=== PATIENT | male | born 1990 | race African-American/Black ===

== ENCOUNTER 2017-03-03 23:35 | Inpatient (IN) | payer OTHER, MEDICARE ==
[~2017-03-03] VITALS: Ht 180.3 cm; Wt 65.9 kg
[~2017-03-03 23:35] MED LIST: CLINDAMYCIN PO; LITHIUM CARBON450 MG PO; LITHIUM CARBON600 MG PO; MOTRIN800 MG PO; NYSTATIN100000 U/M PO; OLANZAPINE5 M2 PO; OLANZAPINE5 MG PO; ROBITUSSIN W/CO10 ML PO; ZITHROMAX Z PA250 MG PO; ZITHROMAX Z-PA250 M1 PO; ZYPREXA5 MG PO; [UNRECOGNIZED DRUG - OTHER] PO
--- NOTE | 2017-03-03 23:39 | NUR ---
PT [facility] STATING FRIEND PUT "RAT POISON ON MY MAC AND CHEESE AND MEDICATIONS." PT STATES HX OF BIPOLAR. PT DEMANDING "I NEED THE RAT POISON ANTIDOTE RIGHT NOW."
--- NOTE | 2017-03-03 23:44 | NUR ---
AT BEDSIDE TO EVAL PT
--- NOTE | 2017-03-04 | NUR ---
PT WANDED BY SECURITY. CHANGED INTO PAPER SCRUBS. 1 VALUABLE BAG, 1 BELONGING, 1 BAG TO PHARMACY.
--- NOTE | 2017-03-04 00:03 | ED PSYCHIATRIC COMPLAINT ---
See Addendum History of Present Illness General Chief Complaint: Psychiatric Related Complaint Stated Complaint: BIBIA "FEEL I WAS POINIONED W/ RAT POISION" HX PSY Source: patient, old records, EMS Exam Limitations: clinical condition Vital Signs & Intake/Output Vital Signs & Intake/Output Vital Signs Date Time Temp Pulse Resp B/P B/P Pulse O2 O2 Flow FiO2 Mean Ox Delivery Rate 03/05 0636 95.7 73 16 107/68 100 Room Air 03/04 2205 97.4 72 18 131/93 100 03/04 1231 97.2 82 18 150/92 96 03/04 0843 96.9 55 18 127/73 100 Room Air Allergies Coded Allergies: NO KNOWN ALLERGIES (04/20/16) Reconcile Medications [place] Carbonate ([place] Carbonate ER) 450 MG TABLET.ER 1 TAB PO QAM BIPOLAR (Reported) [place] Carbonate 600 MG CAPSULE 1 CAP PO QPM BIPOLAR (Reported) Olanzapine (Zyprexa) 5 MG TAB 1 TAB PO QPM BIPOLAR Olanzapine 5 MG TABLET 1 TAB PO QPM bipolar Triage Note: PT [facility] STATING FRIEND PUT "RAT POISON ON MY MAC AND CHEESE AND MEDICATIONS." PT STATES HX OF BIPOLAR. PT DEMANDING "I NEED THE RAT POISON ANTIDOTE RIGHT NOW." Triage Nurses Notes Reviewed? yes Unable To Obtain Hx Due To: patient confusion Onset: Just prior to arrival Duration: constant, continues in ED Timing: recent history Severity: severe Associated Symptoms: anxiety, impaired concentration, insomnia HPI: Prior to admission patient called the ambulance for fear of being poisoned by someone placing substances (rat poison) on his food and medication while he was at a friend's house. He denies fever chills nausea vomiting diarrhea abdominal pain chest pain shortness breath headache dysuria rash bleeding suicidal ideation homicidal ideation. (ELIO RUTLEDGE MD) Past History Travel History Traveled to [place] past 21 day No Medical History Any Pertinent Medical History? see below for history Neurological: NONE EENT: NONE Cardiovascular: NONE Respiratory: NONE Gastrointestinal: NONE Hepatic: NONE Renal: NONE Musculoskeletal: NONE Psychiatric: bipolar disease, ADHD Endocrine: NONE Blood Disorders: NONE Cancer(s): NONE CLOTH CLASSER/Reproductive: NONE Surgical History Surgical History: N Psychosocial History What is your primary language Rwandan Tobacco Use: Current Daily Use Daily Tobacco Use Amount/Type: => 5 Cigarettes daily ETOH Use: denies use Family History Hx Contributory? No (ELIO RUTLEDGE MD) Review of Systems Review of Systems Constitutional: Reports: no symptoms. EENTM: Reports: no symptoms. Respiratory: Reports: no symptoms. Cardiovascular: Reports: no symptoms. GI: Reports: no symptoms. Genitourinary: Reports: no symptoms. Musculoskeletal: Reports: no symptoms. Skin: Reports: no symptoms. Neurological/Psychological: Reports: see HPI, anxiety, confusion. Hematologic/Endocrine: Reports: no symptoms. Immunologic/Allergic: Reports: no symptoms. All Other Systems: Reviewed and Negative (ELIO RUTLEDGE MD) Physical Exam Physical Exam General Appearance: well developed/nourished, alert, awake, anxious, severe distress Head: atraumatic, normal appearance Eyes: Bilateral: normal appearance, PERRL, EOMI. 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 patient not suicidal (ELIO RUTLEDGE MD) Progress Differential Diagnosis: drug intoxication, drug overdose, drug withdrawal, electrolyte abnormality, hypoglycemia Plan of Care: Current Medications Sig/Horacio Start time Last Medication Dose Stop Time Status Admin Olanzapine 10 MG QPM 03/04 2200 UNVr 03/04 (Zyprexa) 220 Olanzapine 5 MG Q6P PRN 03/04 1500 AC (ZYDIS (Orally disintegrating tabs)) Hand-Off Endorsed To: LORA JALLOH MD Endorsed Time: 699 Pending: consult (ELIO RUTLEDGE MD) Hand-Off Endorsed To: TREMAYNE PERKINS MD Endorsed Time: 1958 Pending: consult Comments: Patient has been seen and evaluated by human resource adviser. Patient is gravely disabled and unable to care for himself at home. A PEC as been filled out for Mr. Valadez. Patient advised that he is staying. Patient ran out of the emergency room. PD has been notified. (SHUBHAM ROMERO,LORA De Oliveira) Comments: 03/05/2017 7:12:01 AM patient signed out to Dr. Jalloh at shift change agent. (MADDIE ROMERO,TREMAYNE Saxena) Departure Departure Disposition: STILL A PATIENT Condition: Stable Clinical Impression Primary Impression: Bipolar disorder with psychotic features Referrals: TETO CORMIER Departure Forms: Customer Survey General Discharge Information (AAMIR ROMERO,ELIO) Current Medications Sig/Horacio Start time Last Medication Dose Stop Time Status Admin Olanzapine 10 MG QPM 03/04 2200 UNVr (Zyprexa) Olanzapine 5 MG Q6P PRN 03/04 1500 AC (ZYDIS (Orally disintegrating tabs)) Laboratory Tests 03/04/17 0128: Urine Opiates Screen < 100.00, Methadone Screen < 40, Barbiturate Screen < 60, Ur Phencyclidine Scrn < 6.00, Amphetamines Screen < 100, U Benzodiazepines Scrn < 85, Urine Cocaine Screen < 50, Urine Cannabis Screen < 5.00 03/04/17 0027: Anion Gap 12, Estimated GFR > 60, BUN/Creatinine Ratio 15.6, Glucose 110 H, Calcium 9.7, Total Bilirubin 0.8, AST 27, ALT 37, Alkaline Phosphatase 64, Total Protein 7.9, Albumin 4.9, Globulin 3.0, Albumin/Globulin Ratio 1.6, CBC w Diff NO MAN DIFF REQ, RBC 5.03, MCV 90.9, MCH 29.8, RDW 13.6, MPV 9.3, Gran % 64.9, Lymphocytes % 26.0, Monocytes % 8.1, Eosinophils % 0.4, Basophils % 0.6, Absolute Granulocytes 5.1, Absolute Lymphocytes 2.0, Absolute Monocytes 0.6, Absolute Eosinophils 0, Absolute Basophils 0, PUBS MCHC 32.8 L, Salicylates < 1.0, Acetaminophen < 10.0 L, [place] 0.6, Serum Alcohol < 10.0 03/03/172349: Serum Alcohol Cancelled 03/03/172349: PT Cancelled, INR Cancelled, CBC w Diff Cancelled, WBC Cancelled, RBC Cancelled, Hgb Cancelled, Hct Cancelled, MCV Cancelled, MCH Cancelled, RDW Cancelled, Plt Count Cancelled, MPV Cancelled, PUBS MCHC Cancelled, Methadone Screen Cancelled, Barbiturate Screen Cancelled, Ur Phencyclidine Scrn Cancelled, Amphetamines Screen Cancelled, U Benzodiazepines Scrn Cancelled, Urine Cocaine Screen Cancelled, Urine Cannabis Screen Cancelled Hand-Off Endorsed To: LORA JALLOH MD Endorsed Time: 0700 Pending: consult (AAMIR ROMERO,ELIO) Hand-Off Endorsed To: MADDIE ROMERO,TREMAYNE Saxena Endorsed Time: 1958 Pending: consult Comments: Patient has been seen and evaluated by human resource adviser. Patient is gravely disabled and unable to care for himself at home. A PEC as been filled out for Mr. Valadez. Patient advised that he is staying. Patient ran out of the emergency room. PD has been notified. (SHUBHAM ROMERO,LORA De Oliveira) Departure Departure Disposition: STILL A PATIENT Condition: Stable Clinical Impression Primary Impression: Bipolar disorder with psychotic features Referrals: TETO CORMIER Departure Forms: Customer Survey General Discharge Information (AAMIR ROMERO,ELIO)
[2017-03-04 00:33] LABS: ABSOLUTE BASOPHIL COUNT 0 /CUMM (0.0-0.2); ABSOLUTE EOSINOPHIL COUNT 0 /CUMM (0.0-0.7); ABSOLUTE GRANULOCYTE CT 5.1 /CUMM (1.4-6.5); ABSOLUTE MONOCYTE COUNT 0.6 /CUMM (0.10-0.60); BASOPHIL % 0.6 % (0.0-2.0); EOSINOPHIL % 0.4 % (0-5); GRANULOCYTE % 64.9 % (42.2-75.2); HEMATOCRIT 45.7 % (42-52); MEAN CORPUSCULAR HGB 29.8 PG (27.0-31.0); MEAN CORPUSCULAR HGB CONC 32.8 G/DL (33.0-37.0); MEAN CORPUSCULAR VOLUME 90.9 FL (80.0-94.0); MEAN PLATELET VOLUME 9.3 FL (7.4-10.4); PLATELET COUNT 204 /CUMM (130-400); RBC DISTRIBUTION WIDTH 13.6 % (11.5-14.5); RED BLOOD CELL CT 5.03 /CUMM (4.70-6.10); WHITE BLOOD CELL COUNT 7.8 /CUMM (4.8-10.8)
--- NOTE | 2017-03-04 00:35 | NUR ---
LABS SENT (1SST,1LAV)
[2017-03-04 00:45] LABS: LITHIUM 0.6 mmol/L (0.6-1.2)
--- NOTE | 2017-03-04 01:00 | NUR ---
PATIENT CONTINUES TO WHEEL ALIGNER DOORWAY, ASKING MULTIPLE STAFF MEMBERS WHEN HIS BLOODWORK RESULTS WILL BE BACK "BECAUSE I NEED THE ANTI-DOTE FOR RATPOISON."
--- NOTE | 2017-03-04 01:21 | NUR ---
PATIENT INFORMED WAITING FOR DISCUSSION OF BLOODWORK RESULTS.
--- NOTE | 2017-03-04 01:23 | NUR ---
PATIENT INFORMED WAITING AGAIN FOR BLOODWORK RESULTS.
--- NOTE | 2017-03-04 01:35 | NUR ---
PATIENT MEDICATED W/ ZYPREXA AND ATIVAN PER EMAR. TOLERATED WELL. PATIENT REMAINS PARANOID, CONTINUES TO STATE "I DON'T KNOW, I THINK MAYBE MY HEART RATE IS LOW AND I FEEL LIKE I'M BREATHING WEIRD AND I KNOW IT'S FROM THE RAT POISON." VSS. VERBAL SUPPORT PROVIDED. LIMITS SET FOR PATIENT TO REMAIN IN ROOM. AWARE MD RUTLEDGE WILL BE COMING IN TO ROOM TO SPEAK W/ PATIENT REGARDING BLOODWORK RESULTS.
--- NOTE | 2017-03-04 01:50 | NUR ---
PT CONTINUING TO COME OUT OF ROOM REQUESTING "PAPERS" PT UNABLE TO CLARIFY. LIMITS RESET ON STAYING IN ROOM. WATER PROVIDED TO PT.
--- NOTE | 2017-03-04 02:16 | NUR ---
PT SLEEPING AT THIS TIME WITH REGULAR RR NOTED
--- NOTE | 2017-03-04 04:03 | NUR ---
PT OBSERVED SLEEPING, REGULAR RR NOTED. NO ACUTE DISTRESS NOTED.
--- NOTE | 2017-03-04 06:41 | NUR ---
PT AWAKE, CALM AND COOPERATIVE THIS MORNING. STATES AGAIN HIS FRIEND PUT RAT POISON ON HIS FOOD. REASSURED HE IS SAFE AND VITALS ARE STABLE.
--- NOTE | 2017-03-04 07:42 | NUR ---
PT IS SLEEPING, LIGHTS OFF VSS
--- NOTE | 2017-03-04 12:53 | NUR ---
JUICE PROVIDED. PT REMAINS WITHOUT COMPLAINTS
--- NOTE | 2017-03-04 13:57 | ED PSYCH CRISIS CONSULTATION ---
See Addendum Crisis Consult Basic Assessment Date of Consult: 03/04/17 Responsible Person/Accompanied By: self Insurance Authorization: Insurance #1: Insurance name: MEDICARE A Phone number: Policy number: [id number] Group number: Authorization number: ED Provider: Patient's ED Provider: ELIO RUTLEDGE MD Primary Care Physician: Patient's PCP: PATIENT HAS NO PRIMARY CARE DR PCP's Phone Number: Current Psychiatrist: [facility] Chief Complaint: Psychiatric Related Complaint Patient's Quote: "Some one put rat poison in my food." Present Illness: Pt is a 27 yo male who came to the ED because he thought that someone had put rat poison in his food and medication. Pt explains that after he as his mac and cheese he felt strange and his heart began racing so he thought that he had been poisoned. Pt states he is in out pt tx at [facility] and is compliant with his meds. Pt's [place] level is on the low side. Pt appeared anxious and was pacing the room asking to leave. Pt says he feels fine now and he to be somewhere. He was very guarded and refused to says where he has to go and his answers to questions were minimal. pt says he lives alone and that he has not been psychiatrically hospitalized since age 7yo. Pt reports that he has not slept in 4 days and has been having a difficult time since his Mom 2 years ago. Ch[facility] called [facility] and spoke to Melinda who informed that pt has not come to [facility] since Oct and has missed appointments. She informed that she was actually just about to send him a discharge letter. she reports that his Diagnosis is Bipolar I and that he has a hx of psychotic features. She reports that he also has a hx of becoming manic. She reports that pt was psychiatrically hospitalized in 2015 for Bipolar with Psychotic features, but she reports that their record does not identify where. She recommends inpt tx for pt. [facility] also spoke with Pt's Maternal Aunt Judy Diaz and pt's cousin Ameena Diaz . They informed that pt has basically estranged himself from family and they are not in contact with him that much, but inform that when he is not on his meds he becomes irrational. They also think pt needs inpt psych to get stabilized on his meds. They asked that pt not be told that they recommended this, but would like to be informed where pt is admitted. Case reviewed with Dr. Guerrero of Psychiatry and pt will be psychiatrically hospitalized on a PEC. Patient's Address: [address] [place] [id number] Other Phone Number: Who Do You Live With? Patient/Self Family/Informants Interviewed: [facility], Family Allergies - Coded Allergies: NO KNOWN ALLERGIES (04/20/16) Current Medications - Scheduled Medications [place] Carbonate ([place] Carbonate ER) 450 MG TABLET.ER 1 TAB PO QAM BIPOLAR #30 (Reported) Entered as Reported by JOVAN CROWE on 04/21/14310 Last Taken: At an unknown date and time [place] Carbonate 600 MG CAPSULE 1 CAP PO QPM BIPOLAR #30 (Reported) Entered as Reported by JOVAN CROWE on 04/21/14311 Last Taken: At an unknown date and time Olanzapine (Zyprexa) 5 MG TAB 1 TAB PO QPM BIPOLAR #5 TAB Prescribed by TREMAYNE PERKINS MD on 03/17/15 Last Taken: 03/03/171999 Olanzapine 5 MG TABLET 1 TAB PO QPM bipolar #7 TAB Prescribed by NOEL GARCIA on 04/20/16 Last Taken: Unknown Dose at an unknown date and time Laboratory Results: Laboratory Tests 03/04/17 0128: Urine Opiates Screen < 100.00, Methadone Screen < 40, Barbiturate Screen < 60, Ur Phencyclidine Scrn < 6.00, Amphetamines Screen < 100, U Benzodiazepines Scrn < 85, Urine Cocaine Screen < 50, Urine Cannabis Screen < 5.00 03/04/17 0027: Anion Gap 12, Estimated GFR > 60, BUN/Creatinine Ratio 15.6, Glucose 110 H, Calcium 9.7, Total Bilirubin 0.8, AST 27, ALT 37, Alkaline Phosphatase 64, Total Protein 7.9, Albumin 4.9, Globulin 3.0, Albumin/Globulin Ratio 1.6, CBC w Diff NO MAN DIFF REQ, RBC 5.03, MCV 90.9, MCH 29.8, RDW 13.6, MPV 9.3, Gran % 64.9, Lymphocytes % 26.0, Monocytes % 8.1, Eosinophils % 0.4, Basophils % 0.6, Absolute Granulocytes 5.1, Absolute Lymphocytes 2.0, Absolute Monocytes 0.6, Absolute Eosinophils 0, Absolute Basophils 0, PUBS MCHC 32.8 L, Salicylates < 1.0, Acetaminophen < 10.0 L, [place] 0.6, Serum Alcohol < 10.0 03/03/17 2350: Serum Alcohol Cancelled 03/03/17 2350: PT Cancelled, INR Cancelled, CBC w Diff Cancelled, WBC Cancelled, RBC Cancelled, Hgb Cancelled, Hct Cancelled, MCV Cancelled, MCH Cancelled, RDW Cancelled, Plt Count Cancelled, MPV Cancelled, PUBS MCHC Cancelled, Methadone Screen Cancelled, Barbiturate Screen Cancelled, Ur Phencyclidine Scrn Cancelled, Amphetamines Screen Cancelled, U Benzodiazepines Scrn Cancelled, Urine Cocaine Screen Cancelled, Urine Cannabis Screen Cancelled (DOUG HAWTHORNE LCSW) Past History Past Medical History Neurological: NONE EENT: NONE Cardiovascular: NONE Respiratory: NONE Gastrointestinal: NONE Hepatic: NONE Renal: NONE Musculoskeletal: NONE Psychiatric: bipolar disease, ADHD Endocrine: NONE Blood Disorders: NONE Cancer(s): NONE BELLY PACKER/Reproductive: NONE Past Surgical History Surgical History: none Psychosocial History Strengths/Capabilities: Has stable place to live Psychiatric Treatment History Psych Treatment Psychiatric Treatment Yes Inpatient Treatment Yes Outpatient Treatment Yes Location of Treatment [facility], inpt unknown Reason for Treatment Bipolar I Manic with Psychotic features Dates of Treatment 2014 inpt and current out pt tx at [facility] Response to Treatment non-compliant Diagnosis by History: Bipolar I manic with Psychotic features Substance Use/Abuse History Drug Use/Abuse Substances Used/Abused No Substance Abuse Treatment Substance Abuse Treatment Past Substance Abuse [place] No Inpatient Treatment No Outpatient Treatment No (DOUG HAWTHORNE LCSW) Current Mental Status Mental Status Orientation: Person, Place, Situation Affect: Anxious, Angry Speech: Evasive Neuro-vegetative: Concentration Poor, Hyperactivity, Sleep Disturbance Appearance Appearance- Dress/Hygiene: fairly groomed and pacing the room Behaviors Thought Process: Irrational Thought Content: Delusions, Paranoid Memory: WNL Insight: Poor SI/HI Risk Assessment Past Suicidal Ideation/Attempts No Current Suicidal Ideation/Att No Past Homicidal Ideation/Att: No Current Homicidal Ideation/Attempts No Degree of Intent: None Danger To: Self Gravely Disabled: Lack of Insight, Poor Impulse Control, Poor Judgment Risk Factors: SA/MH hospitalized, poor impulse control, lack of outcome concern, lives alone, male, limited support Lethality Ratin PTSD Checklist PTSD Done? pt unable to participate ED Management Sitter: Yes Restraints: No (DOUG HAWTHORNE LCSW) DSM5/PS Stressors/Medical Prob Diagnosis' (DSM 5, Stressors, Medical): Bipolar I Manic with Psychotic Features F31.2 Current GAF: 25 (DOUG HAWTHORNE LCSW) Departure Disposition Psych Medical Clearance Date: 03/04/17 Medically Cleared at: 1300 Time Started: 1300 Time Ended: 1400 Psychiatrist Consulted: Nikia Guerrero MD Date Disposition Established: 03/04/17 Time Disposition Established: 1400 Plan for Disposition - Modality: Inpatient Psychiatry Facility: Bed Search Rationale for Disposition: safety and stabilization Type of IP Admission: PEC Referrals PATIENT HAS NO PRIMARY CARE DR (PCP/Family) (DOUG HAWTHORNE LCSW) Addendum Addendum 22:00 - This communications writer reassessed pt. briefly per 12 hour protocol. Disposition remains inpatient psychiatric admission on a PEC. Pt. presents with mild agitation but was cooperative. Pt. questions the need for staying in the ED. This communications writer reiterated plan for disposition and advised crisis would reassess in the AM. Pt. states he arrived in the ED only for a medical evaluation of suspected rat poisin in his food. Pt. requested a dinner tray - [facility] sent a food order (pt. refused his meal earlier). (PAULETTE CAMPOS LCSW) Addendum Pt re-evaluation. Pt initially presenting as agitated and demanding to be discharged. Pt responsive to redirection and able to review reasons why he meets crieria for inpatient psychiatric admission. Pt more agreeable to plan. requested to shower. Bed search continues. Refrral faxed to [facility] for review. (QUYNH PINEDO LCSW) Addendum Crisis attempted to re-evaluation patient. However, pt is sleeping. Pt did not wake up when sitter and this department clinician attempted to wake pt. (ALEE BENOIT LCSW)
--- NOTE | 2017-03-04 14:10 | NUR ---
PT AMXIOUS AND WALKING AROUND INROOM.. PT WONDERING WHAT PLAN OF CARE IS.. CRISIS STATES THAT WILL SEE HIM SHORTLY. PT AWARE
--- NOTE | 2017-03-04 14:54 | NUR ---
DR JALLOH AT BEDSIDE TO SPEAK WITH PT. PT IS GETTING AGITATED AND PACING.
--- NOTE | 2017-03-04 15:04 | NUR ---
PT ASKED FOR HIS PHONE TO GET PHONE NUMBERS, WALKED OUT OF HIS ROOM AND RUN OUT TO EXIT. SECURITY FOLLOWED THE PT.
--- NOTE | 2017-03-04 15:16 | NUR ---
UNABLE TO STOP THE PT, PT RUN OUT OF ER, POLICE CALLED BY IMAGE EDITOR KATE. PT HAS HIS PHONE.
--- NOTE | 2017-03-04 15:43 | NUR ---
PT BACK IN ROOM WITH POLICE OFICER.
--- NOTE | 2017-03-04 16:48 | NUR ---
PT RESTING ON STRETCHER, CALM AND COOPERATIVE AT THIS TIME, OFFERS NO NEEDS OR COMPLAINTS, SITTER AT DOORWAY.
--- NOTE | 2017-03-04 17:02 | NUR ---
[facility] called and stated that they are declining the patient for admission to their unit, at this time. They note that they do not have staffing to accept the patient, and that they will call back if that changes.
--- NOTE | 2017-03-04 18:02 | NUR ---
PT MOVED INTO ROOM15, SITTER AT DOORWAY.
--- NOTE | 2017-03-04 20:46 | NUR ---
PT REMAINS IN BED W/RR NOTED. SITTER REMAINS IN PLACE.
--- NOTE | 2017-03-04 22:06 | NUR ---
PT MEDICATED WITH 10MG ZYDIS PER EMAR, TOLERATED WELL. SITTER IN PLACE
--- NOTE | 2017-03-05 00:19 | NUR ---
PT REMAINS ASLEEP AT THIS TIME W/RR NOTED. SITTER IN PLACE
--- NOTE | 2017-03-05 02:03 | NUR ---
PT REMAINS ASLEEP AT THIS TIME W/RR NOTED. SITTER REMAINS IN PLACE FOR SAFETY.
--- NOTE | 2017-03-05 04:08 | NUR ---
PT REMAINS ASLEEP AT THIS TIME. BILATERAL AND REGULAR RESPIRATIONS NOTED. SITTER IN PLACE
--- NOTE | 2017-03-05 06:20 | NUR ---
PT REMAINS ASLEEP AT THIS TIME W/RR NOTED, SITTER REMAINS IN PLACE.
--- NOTE | 2017-03-05 07:44 | NUR ---
PT STANDING IN DOORWAY. SITTER IN ATTENDANCE.
--- NOTE | 2017-03-05 09:45 | NUR ---
PSYCHIATRIST AT BEDSIDE.
--- NOTE | 2017-03-05 10:00 | NUR ---
PT MEDICATED WITH PRN ZYDIS. PT ASKING TO TAKE A SHOWER. OK FOR PT TO SHOWER, PROVIDED SHOWER SUPPLIES, TOWELS AND FRESH BLUE SCRUBS.
--- NOTE | 2017-03-05 10:24 | NUR ---
Pt re-evaluated by crisis. Pt initially presenting as agitated and demanding to be discharged. Pt able to respond to redirection and reviewed reasons why he meets criteria for inpatient bed search. Pt now more accepting of plan and initiated taking a shower. Pt referral has been faxed to [facility] for review.
--- NOTE | 2017-03-05 10:43 | ED PSYCHIATRIST/APRN CONSULT ---
Psychiatrist/CONTROL CLERK ED Consult Assessment and Plan: f/u for more than 24 h. in the ed [facility] The patient is a 27 years old, -Nigerian, single male, who self referred to the emergency room with the complaint of being poisoned with rat poison. We reviewed the emergency room reports as well as the initial crisis report. The patient is apparently in treatment at [facility], (he was on the verge of discharge when he presented to the emergency room because of missed appointments ). The patient is a tall, slender, -Nigerian male, irritable, guarded and suspicious. He states "I just want to go home, I live right [place] the [address] from [place]. I have my therapist and my psychiatrist at [facility] and I have been taking my medication regularly. There is nothing wrong with me." As per [facility], he has not been seen by them since October 2016. The lithium level was barely therapeutic, even though the patient stated that he was taking it regularly. He also said that he took one tablet of lithium prior to coming into the emergency room this may be why his level is almost therapeutic. Diagnosis: Bipolar disorder versus schizoaffective disorder (per [facility]) Stressors include poor social support, stopping his medication, missing his treatment appointments. Current GAF is 30%. The patient agreed to stabilization on inpatient unit. We will restart lithium carbonate and he was given Zyprexa with good effect. We will continue observation, symptom monitoring and medication management. Will continue to search for and inpatient bed.
--- NOTE | 2017-03-05 11:20 | NUR ---
ASSUMED CARE OF THIS PT FROM RENATE LOYA. PT ASLEEP AT THIS TIME. RESPIRATIONS EQUAL AND UNLABORED. SITTER AT DOOR.
--- NOTE | 2017-03-05 13:00 | NUR ---
PT ASLEEP AT THIS TIME. PT LYING ON HIS LEFT SIDE FACING DOOR. PT'S RESPIRATIONS EQUAL AND UNLABORED. SITTER AT DOOR.
--- NOTE | 2017-03-05 14:14 | NUR ---
Sw received a call from [facility], who states that they are not taking any outside referrals at this time.
--- NOTE | 2017-03-05 14:18 | NUR ---
PT ASLEEP AT THIS TIME. RESPIRATIONS EQUAL AND UNLABORED. SITTER AT DOOR.
--- NOTE | 2017-03-05 14:52 | NUR ---
SW spoke to [facility] who state that they no longer have any open beds at this time.
--- NOTE | 2017-03-05 15:49 | NUR ---
ASSUMED CARE OF PT. PT CURRENTLY SLEEPING. REGULAR BREATHING NOTED.
--- NOTE | 2017-03-05 17:35 | NUR ---
PATIENT CONTINUES TO FRAME CHANGER DOORWAY ASKING MUTLIPLE QUESTIONS. PATIENT ASKING IF HE CAN SIGN HIMSELF OUT BECAUSE HE ISNT HARMING ANYONE OR HIMSELF
--- NOTE | 2017-03-05 19:07 | NUR ---
PT MEDICATED WITH LITHIUM 600MG PO PER ORDER. PT TAKES LITHIUM BID, 450MG IN THE MORNING AND 600MG AT NIGHT, PT WILL BE BACK ON LITHIUM SCHEDULE TOMORROW. PT DENIES ANY NEEDS AT THIS TIME. RESTING IN BED. SITTER AT DOORWAY.
--- NOTE | 2017-03-05 20:53 | NUR ---
Crisis attempted to meet with patient. Patient sleeping.
--- NOTE | 2017-03-05 22:49 | NUR ---
PT AWAKEN FOR VS, VSS, MEDICATED WITH ZYPREXA PER EMAR. SITTER AT DOORWAY.
--- NOTE | 2017-03-06 00:31 | NUR ---
PT RESTING ON BED. NORMAL RR NOTED. WILL CONTINUE TO MONITOR.
--- NOTE | 2017-03-06 03:24 | NUR ---
PT RESTING ON BED. SITTER IN PLACE. WILL CONTINUE TO MONITOR.
--- NOTE | 2017-03-06 06:38 | NUR ---
PT AWAKENED FOR VITALS. PT OFFERS NO COMPLAINTS. WILL CONTINUE TO MONITOR.
--- NOTE | 2017-03-06 07:38 | NUR ---
CALLED TO ROOM BY SITTER PT IS REQUESTING TO TALK WITH SOMEONE, UPON THIS DIRECTORY OPERATOR ENTRANCE TO ROOM, PT BECAME AGITATED AND REPORTS "DUDE YOU CANNOT HOLD ME HERE" i AM 27 AND MAKE MY OWN DECISIONS, I WILL LOOSE MY SECTION 8 HOUSING" IT WAS EXPLAINED TO PT THAT AT THIS POINT WE ARE SEACHING FOR A BED PT BECAME UPSET, AND THREATENS TO LEAVE. PT IN ROOM SITTER IN PLACE. SECURITY PRESENT, AWARE WILL MONITOR.
--- NOTE | 2017-03-06 09:14 | NUR ---
SPOKE WITH MARIO IN PHARMACY TO PREPARE 1000 MEDS.
--- NOTE | 2017-03-06 09:48 | NUR ---
PT WITH CRISIS, REPORTS WILL BE LEAVING, ALTHOUGH THIS INFORMATION HAS NOT YET BEEN RELAYED TO THIS TELEMEDICINE PHYSICIAN BY CRISIS. MED WITH LITHIUM PER EMAR
--- NOTE | 2017-03-06 11:18 | NUR ---
PER CRISIS PT IS ON A PEC AND WILL NOT BE DISCHARGED TO HOME.
--- NOTE | 2017-03-06 11:34 | NUR ---
SISTER AT BEDSIDE.
--- NOTE | 2017-03-06 14:31 | NUR ---
PT HAS SHOWERED X 2 THIS AM/PM ASLEEP AT THIS TIME, PT WAS MADE AWARE VERY CLEARLY BY CRISIS IN SISTERS PRESENCE THAT HE MAY NOT LEAVE.
--- NOTE | 2017-03-06 16:19 | NUR ---
ASSUMED CARE OF PT PER RN ARGELIA H, PT SLEEPING WITH RR, SITTER IN PLACE FOR SAFETY.
--- NOTE | 2017-03-06 16:19 | NUR ---
PT RESTING IN BED WITH RR, SITTER IN PLACE FOR SAFETY, WILL CONTINUE TO MONITOR.
--- NOTE | 2017-03-06 16:39 | ED PSYCHIATRIST/APRN CONSULT ---
Psychiatrist/FORENSIC ANTHROPOLOGIST ED Consult Assessment and Plan: The patient was seen to us the continuous need for inpatient care. He appears calm, pleasant and cooperative. He has increased insight into his condition and the rationale for his presence in the emergency room. He reveals that, prior to his presentation into the emergency room he was at a constitution party, he took his medications after he left the constitution party but also had "some shots ". The patient says that since he restarted his psychiatric medications he feels better. Continues to be somewhat disorganized and paranoid. He currently denies suicidal/homicidal ideation, auditory/visual hallucinations or side effects from the medications. He will continue taking Zyprexa and lithium, he likes the former because it comes him down and is sedating therefore he will be able to sleep and rest better. According to his sister's report his apartment was dirty, with raw food left in the oven, unwashed dishes in the sink. The sister expressed her worry about the patient being unable to live alone. He eventually agrees that he needs further help on on inpatient unit We will continue present management in the patient will be admitted to [facility] if a pet becomes available we are also continuing a bed search.
--- NOTE | 2017-03-06 18:00 | NUR ---
Crisis spoke to pt sister, James Buckley. She requested a call back after MD met with pt. She is home now. Her home number is [phone].
--- NOTE | 2017-03-06 18:42 | NUR ---
PT SLEEPING WITH RR, WILL CONTINUE TO MONITOR.
--- NOTE | 2017-03-06 19:55 | NUR ---
PT SLEEPING WITH RR, WILL CONTINUE TO MONITOR, SITTER IN PLACE FOR SAFETY.
--- NOTE | 2017-03-06 20:20 | NUR ---
VSS, WILL CONTINUE TO MONITOR, SITTER IN PLACE FOR SAFETY, PT SLEEPING WITH RR.
--- NOTE | 2017-03-06 20:33 | NUR ---
Pt was evaluated by the psychatrist Dr. Guerrero. Pt meets criteria for inpatient admision. Referral faxed to [facility].
--- NOTE | 2017-03-06 22:26 | NUR ---
PT MEDICATED WITH 600MG LITHIUM PO AND 10MG ZYPREXA PO PER EMAR. PT RESTING WITH RR, WILL CONTINUE TO MONITOR, PT HAS SITTER AT BEDSIDE FOR SAFETY.
--- NOTE | 2017-03-06 23:02 | NUR ---
PT SLEEPING WITH RR, BILATERAL CHEST RISE AND FALL NOTED. WILL CONTINUE TO MONITOR, SITTER IN PLACE FOR SAFETY.
--- NOTE | 2017-03-07 03:42 | NUR ---
PT SLEEPING WITH RR, WILL CONTINUE TO MONITOR, BILATERAL CHEST RISE AND FALL NOTED. SITTER IN PLACE FOR SAFETY.
--- NOTE | 2017-03-07 06:26 | NUR ---
PT SLEEPING WITH RR, SITTER IN PLACE FOR SAFETY. VSS, PT INFORMED BREAKFAST WILL ARRIVE SOON. WILL CONTINUE TO MONITOR
--- NOTE | 2017-03-07 07:12 | NUR ---
PT IS UP, BREAKFAST WAS GIVEN. PT IS CALM AND COOPERATIVE. PT GIVEN SUPPLIES TO TAKE SHOWER. SITTER TO ASSIST PT.
--- NOTE | 2017-03-07 09:50 | NUR ---
BLOOD DRAWN AND SENT TO THE LAB
[2017-03-07 10:21] LABS: LITHIUM 0.5 mmol/L (0.6-1.2)
--- NOTE | 2017-03-07 11:17 | NUR ---
HANDOFF REPORT GIVEN TO RENATE HOOPER
--- NOTE | 2017-03-07 11:25 | NUR ---
ASSUMED CARE OF THIS PT FROM RENATE MAC. PT SEATED ON BED IN ROOM 15. PT CALM AND COOPERATIVE AT THIS TIME. SITTER AT DOOR.
--- NOTE | 2017-03-07 12:48 | NUR ---
CRISIS AT BEDSIDE
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
--- NOTE | 2017-03-07 14:15 | NUR ---
PT SITTING AT DOOR TO ROOM 15. PT CALM AND COOEPRATIVE. SITTER AT DOOR WELL.
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
--- NOTE | 2017-03-07 16:25 | NUR ---
PT SITTING ON BED IN ROOM 15. PT CALM AND COOPERATIVE AT THIS TIME. SITTER AT DOOR.
--- NOTE | 2017-03-07 17:30 | NUR ---
PT VISITING WITH HIS FIRST COUSIN IN AREA. PT ASKED THAT SHE BE ABLE TO SPEAK WITH CRISIS TO GIVE HER IMPUT ON THE SITUATION. CRISIS TO BEDSIDE.
--- NOTE | 2017-03-07 19:20 | NUR ---
PT RESTING ON BED IN ROOM 15. PT CALM AND COOPERATIVE AT THIS TIME. SITTER AT DOOR. PT IS ANTICIPATING TRANSFER DOWN TO [facility].
[2017-03-07 20:34] VITALS: BP 134/82
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
[2017-03-08 07:43] VITALS: BP 135/85
[2017-03-08 12:30] VITALS: BP 135/75
--- NOTE | 2017-03-08 13:20 | History & Physical ---
General Information and HPI MD Statement: I have seen and personally examined JUAN DE OLIVEIRA and documented this H&P. The patient is a 27 year old M who presented with a patient stated chief complaint of "feel was poisoned with rat poison". Source of Information: patient Exam Limitations: no limitations History of Present Illness: 27-year-old male with history of bipolar disorder followed by outpatient care. Apparently missed some appointments since October. In more anxious pacing hasn't slept for 4 days and feels like he was poisoned with rat poison are all those reasons he comes in and is submitted for evaluation and treatment. Allergies/Medications Allergies: Coded Allergies: NO KNOWN ALLERGIES (04/20/16) Home Med list [place] Carbonate ([place] Carbonate ER) 450 MG TABLET.ER 1 TAB PO QAM BIPOLAR (Reported) [place] Carbonate 600 MG CAPSULE 1 CAP PO QPM BIPOLAR (Reported) Olanzapine (Zyprexa) 5 MG TAB 1 TAB PO QPM BIPOLAR Olanzapine 5 MG TABLET 1 TAB PO QPM bipolar Compliance With Home Meds: UNKNOWN Past History Travel History Traveled to [facility] past 21 day No Medical History Neurological: NONE EENT: NONE Cardiovascular: NONE Respiratory: NONE Gastrointestinal: NONE Hepatic: NONE Renal: NONE Musculoskeletal: NONE Psychiatric: bipolar disease, ADHD Endocrine: NONE Blood Disorders: NONE Cancer(s): NONE REGISTRATION REPRESENTATIVE/Reproductive: NONE History of MRSA: No History of VRE: No History of CDIFF: No Isolation History: Standard Surgical History Surgical History: N Past Family/Social History Psychosocial History ETOH Use: denies use Employment History Employment REports he is self-employ Profession/Employer [email or web address] in the last 5 years. Review of Systems Review of Systems Constitutional: Reports: see HPI. Exam & Diagnostic Data Last 24 Hrs of Vital Signs/I&O Vital Signs Date Time Temp Pulse Resp B/P B/P Pulse O2 O2 Flow FiO2 Mean Ox Delivery Rate 03/08 1230 54 135/75 03/08 0743 96.2 52 135/85 03/07 2034 96.9 57 134/82 03/07 1930 98.2 74 16 124/65 94 Room Air 03/07 1644 98.2 64 18 118/70 100 Room Air 03/07 1413 98.3 59 16 132/82 100 Intake & Output 03/08 1600 03/08 0800 03/08 0000 Intake Total Output Total Balance Patient 145 lb Weight Physical Exam General Appearance Alert, Oriented X3, Cooperative, No Acute Distress Skin No Rashes, No Breakdown HEENT PERRLA, EOMI, Mucous Membr. moist/pink Neck Supple, No JVD, No thryomegaly, +2 Carotid Pulse wo Bruit, No LAD Lymphatic Axillary nl, Cervical nl Cardiovascular Regular Rate, No Murmurs Lungs Clear to Auscultation, Normal Air Movement Abdomen Normal Bowel Sounds, Soft, No Tenderness, No Hepatospenomegaly, No Masses Neurological Exam Findings: Normal Gait, Normal Speech, Strength at 5/5 X4 Ext, Normal Tone, Sensation Intact, Cranial Nerves 3-12 NL, Reflexes 2+ Cranial Nerves II through XII: Intact Extremities No Cyanosis, No Edema, Normal Pulses, No Tenderness/Swelling Vascular Normal Pulses, Pulses Symmetrical Last 24 Hrs of Labs/Da[place]: Laboratory Tests 03/07/17 0947: [place] 0.5 L Laboratory Tests 03/07/17 0947: [place] 0.5 L Diagnostic Data ITS Data Unobtainable at this time Assessment/Plan As Ranked By This Provider Problem List: 1. Bipolar disorder with psychotic features 2. ADHD (attention deficit hyperactivity disorder) Miscellaneous Miscellaneous Documentation Attending Case Discussed With: AUBREE ROMERO,JANE Denise Primary Care Physician: PATIENT HAS NO PRIMARY CARE DR Patient sees these Specialists Psychiatry Level of Patient Care: [facility] Consults Needed: Consulting Specialty: Psychiatry Consulting Physician: Dr. Rincon Reason for Consult: paranoia
--- NOTE | 2017-03-08 13:36 | NUR ---
PT IS COMPLIANT AND COOPERATIVE. MOOD IS STABLE WITH A CONSTRICTED AFFECT. PT DENIES SI AT THIS TIME, NO COMPLAINTS OFFERED. PT IS PRESENT ON THE UNIT AND HAS SOME INTERACTION WITH PEERS AND STAFF. PT IS ATTENDING GROUPS. VITALS ARE STABLE, APPETITE IS GOOD.
[2017-03-08 16:24] VITALS: BP 136/76
--- NOTE | 2017-03-08 16:59 | CPS MD/APRN INITIAL ASSE PSYCH ---
Psychiatric Admission Balance Bridge Inspector's Note Reviewed: Yes Patient Seen and Examined: Yes Identifying Information: This is the 1st [facility] admission for a 27-year-old single (never , ? 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 Chief Complaint: "Someone put rat poison in my food." Reaction to Hospitalization: actively opposed to admission and committed on a P.E.C. signed by the E.D. attending physician History of Present Illness Onset of Illness: Apparently, patient was at a friend's house and rather suddenly became afraid that the latter (or "someone") had "poisoned" the food he was eating ("rat poison in my mac and cheese and medications...I need the rat poison antidote right now"). He was brought into the E.D. via ambulance directly from a "green party " at a friend's place. He acknowledged "having a couple of shots [of vodka] while there. Patient became agitated at the wait in the E.D., bolted out of the E.D. and had to be brought back by local police. He appeared to improve/calm somewhat after some oral doses of Zydis Zyprexa, 10mg and starting Headrick carbonate, 1,050mg/day. All told, patient spent almost 4 days in the E.D. Crisis Room 15 and actually became calmer and more cooperative over time, seeming to understand the need for stabilization in hospital and did not resist it. Circumstances Leading to Admission: (see above, under "Onset of Illness") generally his becoming intensely paranoid and agitated during a green party at a friend's home Problem(s) Justifying Need for Admission: --accusing someone at a green party putting "rat poison" in his food; agitated, gravely disabled by paranoia Other HPI: Patient has been in outpatient treatment with clinicians/prescribers at [facility], with last appointment attended on 11/12/2016; patient noted he is only seen "once every 3 months and had missed "only one" visit (the next due in late 01/2017) and "that is why my medication refills just ran out recently." Patient describes his diagnosis as "bipolar." Past Psychiatric History Past Diagnosis(es)- if any: Bipolar I Disorder; MRE Mixed/Manic, with psychotic features Past Precipitating Factors- if any: --non-compliance with treatment/medications --appears to not have been doing as well since his mother's (she used to take him to hospital and clinic appointments) - Include inpatient and outpatient treatment Treatment History: Apparently, patient has been repeatedly admitted/ admitted multiple times since 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 History of Suicide Attempts or Gestures denied; none known Substance Abuse History: denied Allergies: Coded Allergies: NO KNOWN ALLERGIES (04/20/16) Home Med List: Zyprexa, 5mg nightly *Headrick carbonate, 1,050mg/day *(Headrick level in the E.D. initially on 03/04/2017 was 0.6mEq/L; however, following "reinstatement" of regular dosing in E.D./on [facility], Headrick levels were actually LOWER at only 0.5 on 03/07 and 03/09/2017) - Include any medical condition(s) that may - impact the patient's recovery/remission Past History Medical History Neurological: NONE EENT: NONE Cardiovascular: NONE Respiratory: NONE Gastrointestinal: NONE Hepatic: NONE Renal: NONE Musculoskeletal: NONE Psychiatric: bipolar disease, ADHD (R/O early presentation bipolar) Endocrine: NONE Blood Disorders: NONE Cancer(s): NONE HAND TOOL FILER/Reproductive: NONE History of MRSA: No History of VRE: No History of CDIFF: No Isolation History: Standard Surgical History Surgical History: none Psychiatric Family/Social Hx Family History Psychiatric Illness: unknown Substance Use: unknown Suicides: unknown Social History Living Situation: (see above, under "Identifying Information") Significant Relationships (family/friends): --has some close friends and relatives (?at least one aunt and one cousin) --claims to not be close to sister and brother (but apparently the former is looking to have him conserved/be his conservator) --close to mother until her 2 years ago Education: did not graduate from high school; said to be currently working on his [employer] Vocation/Occupation: has worked at [employer] and currently again seeking work in [employer] industry Legal: denied Healthly Behaviors Screening Tobacco Screening Tobacco Use from ED Docu: Current Daily Use Daily Tobacco Use Amount/Type: => 5 Cigarettes daily - If tobacco counseling indicated - the following topics are required. - #1 Recognizing dangerous situations. - #2 Coping Skills. - #3 Basic information about quitting. Status of Tobacco Cessation Counseling: #1, #2 AND #3 Completed Cessation Med Status: Pt Refused Cessation Meds (nicotine patch or gum) Alcohol Screening - ETOH screen POS if BAL >=80 or Audit-C>= M4/F3 Audit-C Score from Diag Assess: 1 Blood Alcohol Level: ROCKY = less than 10.0 Alcohol Use Screening Results: Neg per Audit C &/or BAL - If ETOH counseling indicated - the following topics are required. - #1 Express concern about the patient's - drinking at unhealthy levels, include informing - of national norms for moderate drinking: - men <= 14 drinks/week, max 4 drinks/occasion - women <= 7 drinks/week, max 3 drinks/occasion - #2 Providing feedback, including linking alcohol to - negative physical effects (liver injury, hypertension) - negative emotional effects (relationship problems and - depression) - negative occupational consequences (reduced work - performance) - #3 Advising the patient to abstain from alcohol or - to drink below national norms for moderate drinking - (as listed above). Status of ETOH Use Counseling: N/A B/C NO ETOH Use Metabolic Screening - Screen if on a Neuroleptic Medication - Metabolic screening should include: - Blood Pressure, BMI, Glucose or Hgb A1c, & a - Lipid profile from within the past 365 days. Metabolic Screening () Not Applicable, patient not on a neuroleptic. OR ([x]) Patient on a neuroleptic(s) . Enter below results for Glucose or Hemoglobin A1C, and lipid panel if obtained during the last 365 days. BMI: 20.200 Blood Pressure: 144/78 Laboratory Results (If applicable): [x] glucose = 110 (on 03/04/2017) cholesterol = 139 (all drawn on 03/07/2017) triglycerides = 50 HDL = 76 LDL = 53 Exam and Plan Mental Status Examination Ambulation Status: without assistance Appearance: tall, thin young man in an animated [id number] Attitude towards examiner: somewhat ambivalent at first but generally more positive as interview progressed Psychomotor activity: mildly excited (but not agitated), increased motor activity, gesturing, etc., but in no way threatening Behavior: polite, likable, respectful, if somewhat overactive Quality of speech: pressured but of normal tone and volume; spoke quite coherently and articulately despite increased rate of speech Affect: mildly labile, generally euthymic despite obvious displeasure at having been in the E.D. for 4 days Mood: generally euthymic to mildly elevated despite what he went through in the E.D. and since admission Suicidal Ideation: denied Homicidal Ideation: denied Hallucinations: denied at this time Paranoid/Delusional Material: no evidence of despite prolonged residential in E.D. Difficulties with thought organization: spoke rapidly but coherently without much undue tangentiality, circumstantiality or looseness Insight: fair and improving Judgment: good at this time Orientation: full Cognition: no evidence of gross global or focal deficits Memory Function: generally intact with some lapses (but recalled events of his past 4 days in the E.D. rather well) Estimate of intellectual functioning: average to above Assets/Strengths Patient Identified Assets/Strengths: --living independently and in his own apartment --takes care of himself --wants to improve his education and life Impression/Plan Impression and Plan: For reason(s) not yet known to me this patient being treated by [facility] for bipolar disorder failed to follow through with his schedule medication eval. appointment in late 01/2017 after having gone to visits in 07/2016 and 10/2016; and, having run out of his regular maintenance medication prescription refills did not even then make another appointment with his treaters close to sending him a 2-week notice with regard to terminating his treatment with them when he appeared at the E.D. having been brought in from a "green party" at a friend's place via ambulance on an emergency basis, agitated and expressing paranoid ideation, that someone was trying to poison him with "rat poison in [his] food" and initially desperately seeking "the antidote" for this "poison." He rapidly and significantly improved while still in the E.D. (was there almost 4 days) once his medications were restarted, Headrick at the usual dose but Zyprexa dose doubled from 5mg to 10mg a dose. It is impressive given how he presented to the E.D. (and having eloped once from the building--brought back by police) that he not only dealt with the severe confinement, lack of privacy and commotion there but significantly resolved his presenting episode. We will likely be able to make this a brief admission if we're able to organize a family meeting or meeting with a close friend before the coming weekend. Patient should likely follow up in either the [facility] or our own IOP. - Include all active medical diagnosis that require tx DSM 5 Diagnosis(es): Bipolar I Disorder, Manic; MRE Mixed/Manic with transient but florid psychotic symptomatology (the latter actually the reason he was brought into E.D.) - Initial Tx Plan for Active Psych & Medical Conditions Treatment Plan: --I will continue current dose of Headrick (1,050mg/day) but given low concentration in the E.D. will repeat level tomorrow morning, 03/09/2017 --I will maintain current dose of Zyprexa, 10mg HS but add low dose PRN's for racing thoughts preventing sleep, persistent hypomania/excitation, disorganization of thought preventing prompt and sufficient discharge/ disposition planning --we will organize a family meeting with relative(s) or a close friend as soon as possible --patient should probably be referred for intensive outpatient treatment in the [facility] or our own IOP before resuming outpatient visits and this young, intelligent, articulate and ambitious man should have more by way of services at [facility], individual appointments with a clinician/therapist in particular - Factors that would help patient function - in a less restrictive setting. Factors: --continuing rapid resolution of symptoms with which patient presented to the E.D. (4-5 days ago) --patient willingness to follow through with referral to an IOP for intensive structured treatment prior to resuming outpatient appointments --tolerating increased dose of Zyprexa well without significant side effects or daytime sedation
[2017-03-08 19:53] VITALS: BP 134/93
--- NOTE | 2017-03-08 20:53 | NUR ---
PT IS CALM, COOPERATIVE WITH STAFF AND PEERS, AND COMPLIANT WITH UNIT RULES. PT IS OFTEN IN MILIEU, INTERACTING TO SOME EXTENT WITH OTHERS, SLIGHTLY WITHDRAWN AT TIMES. PT APPEARS SLIGHTLY LETHARGIC, SLEEPING IN MILIEU AT TIMES. MOOD IS STABLE, AFFECT APPEARS EUTHYMIC, COMMUNICATION IS ORGANIZED AND APPEARS NORMAL IN ALL RESPECTS, AND APPETITE IS NORMAL. PT DENEIS SI AT THIS TIME.
--- NOTE | 2017-03-09 05:36 | NUR ---
PT ON A PEC. PT QUIET AND COOPERATIVE ON THE UNIT. PT SLEPT.
[2017-03-09 07:43] VITALS: BP 121/66
[2017-03-09 08:03] LABS: LITHIUM 0.5 mmol/L (0.6-1.2)
[2017-03-09 12:10] VITALS: BP 144/78
--- NOTE | 2017-03-09 13:34 | NUR ---
PT IS STABLE WITH FULL RANGE OF AFFECT, INTERACTING WITH OTHERS, APPROPRIATE TO THE UNIT, POSITIVE. ATTENDING GROUPS. DURING FOCUS GROUP 5 PT REPORTED THAT HE SOMETIMES ENJOYS "HAVING ALONE TIME BECAUSE I NEED TO RECHARGE MENTALLY". VS ARE STABLE. PT IS SCHEDULED TO HAVE A FAMILY MEETING THIS AFTERNOON WITH THE POTENTIAL FOR DC.
[2017-03-09] MEDS ORDERED: LITHIUM CARBON300 M4 PO (14:04)
[2017-03-09] MEDS ORDERED: OLANZAPINE15 M1 PO (14:04)
--- NOTE | 2017-03-09 14:35 | NUR ---
PT IS TENTATIVELY SCHEDULED FOR D/C TODAY TO [facility]. HE REPORTS AND DEMONSTRATES IMPROVEMENT IN HIS MOOD AND ABILITY TO FUNCTION. HE DENIES ANY THOUGHTS OF SUICIDE OR SELF HARM.HE IS COMPLIANT WITH HIS MED REGIME AND AGREES TO FOLLOW UP WITH CARE. PT IS GIVEN EDUCATION R/T MANAGING HIS BIPOLAR D/O AND ON PREVENTING SUICIDE
--- NOTE | 2017-03-09 15:30 | SOCIAL WORKER PROG NOTE PSYCH ---
Social Work Progress Note Progress Note This note is from 03/08/17, 2:15pm, as note could not be entered by this editorial writer on 03/08/17. Patient discussed reason for current inpatient admission. Patient identified family/friends as supportive, however, does not utilize them as supports as he is "independent" and does not want visitors nor does he want to involve them in treatment at this time. Patient signed an WALDEMAR for [facility] where he receives medication management. He did not want to sign any other WALDEMAR's at this time. Pt is adjusting to inpatient milieu and agreeable to attend groups. Pt agreed to alert nursing staff/treatment team should any concerns arise.
--- NOTE | 2017-03-09 15:53 | CP SOUTH PROGRESS NOTE PSYCH ---
Psych (Inpt) Progress Note Progress Note Include the following elements, when applicable: Involvement in the active treatment of the patient with behavioral observations of the patient and the patient's response to the treatment. Review of the ongoing treatment process in the context of the treatment plan. Indication of how multi-disciplinary staff members are carrying out the treatment plan. Plans for future interventions and recommendations for revision of the treatment plan. Liaison with other physicians/providers. Progress Note: PSYCHIATRIST NOTE (FAMILY MEETING/DISCHARGE), 03/09/2017: I discussed this patient's rapid progress to date, current mental status, treatment and discharge plans with staff team today in the daily morning ITTM and Darby Pinzon LCSW, and I met together with patient and a female family friend Mei Layne (who was his mother's longtime best friend from their smiley community prior to mother's 2 years ago--before which Ms. Layne promised to look out after patient "like her own son") in a family session and we both met with him again prior to discharging him back to [facility] where he will be referred to their IOP; he will meet with Becka Chapman LCSW, tomorrow, 2016, at 1:30pm to discuss his entry into IOP there; he will thereafter have a medication evaluation visit with Elizabeth Herron APRN, on 03/16/2017 at 5pm. I also gave patient an appointment card for the [facility] scheduled for 03/23/2017, at 4pm, facilitated by Jennifer Martinez LCSW. During our meeting today Ms. Layne was very appropriately supportive of patient and has an obviously close and mutually positive and caring relationship with him. She was able to confirm most of what patient had told us about his background and was not the slightest worried about his being discharged from hospital today, so long as he resumed his outpatient appointments with his treaters at [facility] and takes/does not run out of his psychotropic medications. I have called into the [facility] on day of discharge, 03/09/2017: Pulcifer carbonate, 300mg: ii tabs 2x/day (1,200mg daily); #56 with no refill (stabilize moods) (dose of Pulcifer carbonate was increased from 1,050mg to 1,200mg/day today after serum Pulcifer level from this morning was resulted as AGAIN only 0.5mEq/L on the former lower dose; I would recommend repeating level within a few weeks; patient is well aware of the early symptoms of possible Pulcifer excess, as well as precautions to take particularly during hot summer months) Zyprexa, 15mg: i tab nightly at HS (15mg/night); #14 with no refill (racing/ delusional thoughts) (I increased daily dose of Zyprexa from 10mg to 15mg HS prior to discharge; it will likely be possible to soon taper Zyprexa dose back to 10mg/day; patient had been on 5mg HS before running out) I again encouraged patient to utilize nicotine patch or gum OTC to help reduce cravings for cigarettes/tobacco (though he had refused these while here on [facility]) and he knows to not smoke while using either of these aids; I gave him an appointment card for the [facility] scheduled for 03/23/2017 at 4pm, facilitated by Jennifer Martinez LCSW, and urged him to attend.
--- NOTE | 2017-03-09 16:01 | SOCIAL WORKER TX PLAN PSYCH ---
Treatment Plan - Please Document: - Evidence that there is ongoing collaboration between - the patient and the interdisciplinary team, - including the patient's active participation and - responsibility for engaging in the treatment regimen, - and that the treatment plan is individualized and - relevant to the patient's conditions. - Treatment plan should reflect documentation indicating - that all active therapeutic efforts are included. Strengths/Capabilities: Has stable place to live, but it is currently in disrepair Physical Limitations (Interventions): None Problem/Goals #1 Problem #1: psychosis Goal (Short Term): Patient will resume psychiatric medication to better manage symptoms. Goal (Security Incident Handler): Patient will report clearer thought process and absence of psychotic sx. Interventions: Client will be offered group, individual and family (family friend) therapy as well as medication management. Interventions will assist patient in learning coping skills and strategies in managing sx. Pt will also be offered medication management and education regarding medications that he is prescribed. Discharge planning will be offered to support ongoing management of sx/illness. Modalities: Group, family and individual therapy; medication management. DSM5/PS Stressors/Medical Prob Diagnosis' (DSM 5, Stressors, Medical): Bipolar I Manic with Psychotic Features F31.2 Current GAF: 25 Treatment Team - Responsibilities of members of the treatment team include: - Medication Management- MD or FOLDER MACHINE ADJUSTER - Medication Administration and Monitoring- Nurse - Group Therapy- Occupational Therapist - 1:1 Therapy,Disch Planning,family involvement-Ribbon Lap Machine Tender
--- NOTE | 2017-03-09 16:06 | DISCHARGE SUMMARY REPORT-PSYCH ---
Visit Information Visit Dates/Diagnosis' Admission Date: 03/07/17 Discharge Date: 03/09/17 Reason for Admission: "Someone put rat poison in my food." Psy Discharge Primary Diag: Bipolar II Disorder; MRE hypomanic with transient psychotic features (had paranoid delusion that "someone poisoned my food ...they put rat poison in my food..." R/O Schizoaffective Disorder with psychotic f Hospital Course Significant Lab Findings: glucose = 110; HDL = 76, LDL = 53; ROCKY = less than 10.0; urine for drugs of abuse--negative (for complete details of all normal range laboratory data from this admission, see the electronic medical record) Course Complications: none Consultations: patient was seen for an admission, medical H&P and followed medically during this admission by Maximo Mcwilliams M.D. Allergies: Coded Allergies: NO KNOWN ALLERGIES (04/20/16) Hospital Course/TX Response: (see also, all initial/admission assessments and daily M.D./LIQUID FLOOR AND WALL APPLIER and TRENCH SHOVEL OPERATOR progress notes for this admission in the electronic medical record) For reason(s) not yet known to me this patient being treated by [facility] for bipolar disorder failed to follow through with his schedule medication eval. appointment in late 01/2017 after having gone to visits in 07/2016 and 10/2016; and, having run out of his regular maintenance medication prescription refills did not even then make another appointment with his treaters close to sending him a 2-week notice with regard to terminating his treatment with them when he appeared at the E.D. having been brought in from a "alliance party" at a friend's place via ambulance on an emergency basis, agitated and expressing paranoid ideation, that someone was trying to poison him with "rat poison in [his] food" and initially desperately seeking "the antidote" for this "poison." He rapidly and significantly improved while still in the E.D. (was there almost 4 days) once his medications were restarted, [place] at the usual dose but Zyprexa dose doubled from 5mg to 10mg a dose. It is impressive given how he presented to the E.D. (and having eloped once from the building--brought back by police) that he not only dealt with the severe confinement, lack of privacy and commotion there but significantly resolved his presenting episode. We will likely be able to make this a brief admission if we're able to organize a family meeting or meeting with a close friend before the coming weekend. Patient should likely follow up in either the [facility] or our own IOP. On date of discharge, Darby Pinzon LCSW, and I met together with patient and a female family friend Mei Layne (who was his mother's longtime best friend from their smiley community prior to mother's 2 years ago--before which Ms. Layne promised to look out after patient "like her own son") in a family session and we both met with him again prior to discharging him back to [facility] where he will be referred to their IOP; he will meet with Becka Chapman LCSW, tomorrow, 03/10/2017, at 1:30pm to discuss his entry into IOP there; he will thereafter have a medication evaluation visit with Meliton Mix APRN, on 03/16/2017 at 5pm. I also gave patient an appointment card for the [facility] scheduled for 03/23/2017, at 4pm, facilitated by Jennifer Martinez LCSW. During our meeting today Ms. Layne was very appropriately supportive of patient and has an obviously close and mutually positive and caring relationship with him. She was able to confirm most of what patient had told us about his background and was not the slightest worried about his being discharged from hospital today, so long as he resumed his outpatient appointments with his treaters at [facility] and takes/does not run out of his psychotropic medications. Discharge HBIPS - Tobacco Use Treatment Offered Post DC Medications Offered: Script Given-See Med List Post DC Tobacco Treatment Plan: [facility] Appt Date: 03/23/17 - EtOH/Drug Use D/O Treatment Offered Post DC Medications Offered: NA-No EtOH/Drug Use D/O Post DC EtOH/SubAbuse TX Plan: NA-No EtOH/Drug Use D/O Metabolic Screening - Screen if on a Neuroleptic Medication - Metabolic screening should include: - Blood Pressure, BMI, Glucose or Hgb A1c, & a - Lipid profile from within the past 365 days. Metabolic Screening () Not Applicable, patient not on a neuroleptic. OR () Patient on a neuroleptic(s) . Enter below results for Glucose or Hemoglobin A1C, and lipid panel if obtained during the last 365 days. BMI: 20.200 Blood Pressure: 144/78 Laboratory Results (If applicable): [x] glucose = 110 (on 02/22/2017) glycos hgb A1c = 5.7 (on 03/09/2017) cholesterol = 139 (all drawn on 03/07/2017) triglycerides = 50 HDL = 76 LDL = 53 Discharge Instructions General Discharge Information Discharge Medications: I have called into the [facility] on day of discharge, 03/09/2017: [place] carbonate, 300mg: ii tabs 2x/day (1,200mg daily); #56 with no refill (stabilize moods) (dose of [place] carbonate was increased from 1,050mg to 1,200mg/day today after serum [place] level from this morning was resulted as AGAIN only 0.5mEq/L on the former lower dose; I would recommend repeating level within a few weeks; patient is well aware of the early symptoms of possible [place] excess, as well as precautions to take particularly during hot summer months) Zyprexa, 15mg: i tab nightly at HS (15mg/night); #14 with no refill (racing/ delusional thoughts) (I increased daily dose of Zyprexa from 10mg to 15mg HS prior to discharge; it will likely be possible to soon taper Zyprexa dose back to 10mg/day; patient had been on 5mg HS before running out) I again encouraged patient to utilize nicotine patch or gum OTC to help reduce cravings for cigarettes/tobacco (though he had refused these while here on [facility]) and he knows to not smoke while using either of these aids; I gave him an appointment card for the [facility] scheduled for 03/23/2017 at 4pm, facilitated by Jennifer Martinez LCSW, and urged him to attend. Multiple Neuroleptics: ([x]) Not Applicable OR Document below three failed attempts at monotherapy, or a plan to taper to monotherapy, or augmentation of Clozapine. () Patient's Diet: heart healthy Patient's Activity: without restrictions DC Disposition: to home Recommendations: Following an interview of outpatient stabilization I would recommend attempting slow taper of Zyprexa. Serum [place] level should be monitored to assure optimal dosing and as a check on outpatient med compliance. Referred To: We discharged patient back to [facility] where he will be referred to their IOP; he will meet with Becka Chapman LCSW, tomorrow, 03/10/2017, at 1:30pm to discuss his entry into IOP there; he will thereafter have a medication evaluation visit with Meliton Mix APRN, on 03/16/2017 at 5pm. I also gave patient an appointment card for the [facility] scheduled for 03/23/2017 , at 4pm, facilitated by Jennifer Martinez LCSW. Copies To: MELITON MIX APRN; BLANCA VIZCARRA,MARU
--- NOTE | 2017-03-09 16:27 | SOCIAL WORKER PROG NOTE PSYCH ---
Social Work Progress Note Progress Note Patient met with Dr. Altman and this clinician to discuss discharge. Pt agreed to contact a family friend to meet with Dr. Altman/this rewriter this afternoon. This rewriter will contact [facility] regarding an outpatient appointment.
--- NOTE | 2017-03-09 16:27 | SOCIAL WORKER PROG NOTE PSYCH ---
Social Work Progress Note Progress Note Pt's records/IOP referral form sent by fax to [facility]. NICO contacted [facility] and spoke with Melinda who provided the following appointment dates/times: - Becka Chapman LCSW, 03/10/17, 1:30pm: initial session regarding IOP - Elizabeth Herron APRN, 03/16/17, 5pm: medication management Dr. Altman and NICO met with patient and his family friend, Mei Layne, regarding discharge today. Pt was provided with the above appointment dates/ times, which he accepted and agreed to attend.
== END 2017-03-09 15:41 | DRG 885 ==
LOC: ERH 23:35 → CP SOUTH 03-07 13:03 → ERHI 03-07 13:03 → ERH 03-07 16:23 → ENRESERV 03-07 20:00 → CP SOUTH 03-07 20:12 → ENPENDDIS 03-09 15:30 → CP SOUTH 03-09 15:41
PROVIDERS: Emergency Medicine; Psychiatry & Neurology Addiction Medicine; ADMIT Psychiatry & Neurology Psychiatry
DX: F31.0 Bipolar disorder, current episode hypomanic (principal)
CPT/HCPCS: 80307; 96372; G0463; G0480; J3490

== ENCOUNTER 2017-03-12 09:58 | Emergency (ER) | payer OTHER, MEDICARE ==
[~2017-03-12] VITALS: Ht 180.3 cm; Wt 72.6 kg
[~2017-03-12 09:58] MED LIST changes: +LITHIUM CARBON300 M4 PO; +OLANZAPINE15 M1 PO
[2017-03-12 10:06] VITALS: BP 121/76
--- NOTE | 2017-03-12 10:35 | ED GENERAL ADULT ---
History of Present Illness General Chief Complaint: General Adult Stated Complaint: NEEDS DOSAGE CHANGED FOR MED Source: patient, old records Exam Limitations: no limitations Vital Signs & Intake/Output Vital Signs & Intake/Output Vital Signs Date Time Temp Pulse Resp B/P B/P Pulse O2 O2 Flow FiO2 Mean Ox Delivery Rate 03/12 1006 97.1 80 15 121/76 100 Room Air Allergies Coded Allergies: NO KNOWN ALLERGIES (04/20/16) Reconcile Medications [place] Carbonate 300 MG CAPSULE 600 MG PO 0800,1999 stabilize mood Olanzapine 15 MG TABLET 15 MG PO 2200 clarify thinking Olanzapine (Zyprexa) 10 MG TABLET 1 TAB PO QPM MENTAL BALANCE Triage Note: PT TO ED FOR ADJUSTMENT OF HIS ZYPREXA, PT STATING HE NORMALLY TAKES [address] MOSS PRESCRIBED 15MG. PT REPORTING HE ATTEMPTED TO CALL PRESCRIBER WITH NO LUCK AND WAS TOLD TO COME TO ED FOR NEW SCRIPT. Triage Nurses Notes Reviewed? yes HPI: Patient's Zyprexa was increased from 5 mg to 15 mg. Patient states that ever since starting the 50 mg he is been feeling very tired and lethargic. Patient denies any suicidal or homicidal ideations. Patient denies any hallucinations. Patient wants to decrease his Zyprexa back on 5 mg. Patient has no other complaints. Past History Travel History Traveled to [place] past 21 day No Medical History Any Pertinent Medical History? see below for history Neurological: NONE EENT: NONE Cardiovascular: NONE Respiratory: NONE Gastrointestinal: NONE Hepatic: NONE Renal: NONE Musculoskeletal: NONE Psychiatric: bipolar disease, ADHD Endocrine: NONE Blood Disorders: NONE Cancer(s): NONE OPERATIONS ADMINISTRATOR/Reproductive: NONE History of MRSA: No History of VRE: No History of CDIFF: No Surgical History Surgical History: non-contributory, N Psychosocial History Who do you live with Patient/Self What is your primary language Indonesian Tobacco Use: Current Daily Use Daily Tobacco Use Amount/Type: => 5 Cigarettes daily ETOH Use: occasional use Illicit Drug Use: denies illicit drug use Family History Hx Contributory? No Review of Systems Review of Systems Constitutional: Reports: no symptoms. Respiratory: Reports: no symptoms. Cardiovascular: Reports: no symptoms. GI: Reports: no symptoms. Musculoskeletal: Reports: no symptoms. Neurological/Psychological: Reports: see HPI. Immunologic/Allergic: Reports: no symptoms. Physical Exam Physical Exam General Appearance: well developed/nourished, alert, awake Eyes: Bilateral: PERRL, EOMI. Respiratory: normal breath sounds, chest non-tender, no respiratory distress, lungs clear Cardiovascular: regular rate/rhythm, normal peripheral pulses Neurologic/Psych: no motor/sensory deficits, awake, alert, oriented x 3, normal gait, normal mood/affect Core Measures ACS in differential dx? No CVA/TIA Diagnosis: No Severe Sepsis Present: No Septic Shock Present: No Progress Differential Diagnoses I considered the following diagnoses in my evaluation of the patient: [ Medication reaction] Plan of Care: Discussed with psychiatry. Patient will take 10 mg of Zyprexa and follow-up. Initial ED EKG: none Departure Departure Disposition: HOME OR SELF CARE Condition: Stable Clinical Impression Primary Impression: Medication reaction Referrals: PATIENT HAS NO PRIMARY CARE DR (PCP/Family) Additional Instructions: FOLLOW UP WITH [facility] Departure Forms: Customer Survey General Discharge Information Prescriptions: Current Visit Scripts Olanzapine (Zyprexa) 1 TAB PO QPM #30 TAB Critical Care Note Critical Care Note Critical Care Time: non-applicable
[2017-03-12] MEDS ORDERED: ZYPREXA10 M1 PO (10:42)
== END 2017-03-12 10:45 ==
LOC: ERH 09:58
DX: T43.595A Adverse effect of other antipsychotics and neuroleptics, initial encounter (principal)

== ENCOUNTER 2017-04-02 15:21 | Emergency (ER) | payer OTHER, MEDICARE ==
[~2017-04-02 15:21] MED LIST changes: +ZYPREXA10 M1 PO
[2017-04-02 15:37] VITALS: BP 132/77
--- NOTE | 2017-04-02 15:40 | ED GENERAL ADULT ---
History of Present Illness General Chief Complaint: General Adult Stated Complaint: MEDICATION REFILL Vital Signs & Intake/Output Vital Signs & Intake/Output Vital Signs Date Time Temp Pulse Resp B/P B/P Pulse O2 O2 Flow FiO2 Mean Ox Delivery Rate 04/02 1537 97.8 80 18 132/77 98 Room Air Allergies Coded Allergies: NO KNOWN ALLERGIES (04/20/16) Reconcile Medications [place] Carbonate 300 MG CAPSULE 600 MG PO 0800,2000 stabilize mood Olanzapine 15 MG TABLET 15 MG PO 2200 clarify thinking Olanzapine (Zyprexa) 10 MG TABLET 1 TAB PO QPM MENTAL BALANCE Triage Note: PT TO TRIAGE FOR LITHIUM 600MG REFILL. NO COMPLAINTS. VSS. 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 (PCP/Family) Departure Forms: Customer Survey General Discharge Information
[2017-04-02] MEDS ORDERED: LITHIUM CARBON600 M1 PO (15:47)
--- NOTE | 2017-04-02 15:48 | ED GENERAL ADULT ---
History of Present Illness General Chief Complaint: General Adult Stated Complaint: MEDICATION REFILL Source: patient Exam Limitations: no limitations Vital Signs & Intake/Output Vital Signs & Intake/Output Vital Signs Date Time Temp Pulse Resp B/P B/P Pulse O2 O2 Flow FiO2 Mean Ox Delivery Rate 04/02 1537 97.8 80 18 132/77 98 Room Air Allergies Coded Allergies: NO KNOWN ALLERGIES (04/20/16) Reconcile Medications [place] Carbonate 600 MG CAPSULE 1 CAP PO QPM MEDICATION REFILL [place] Carbonate 300 MG CAPSULE 600 MG PO 0800,1999 stabilize mood Olanzapine 15 MG TABLET 15 MG PO 2200 clarify thinking Olanzapine (Zyprexa) 10 MG TABLET 1 TAB PO QPM MENTAL BALANCE Triage Note: PT TO TRIAGE FOR LITHIUM 600MG REFILL. NO COMPLAINTS. VSS. Triage Nurses Notes Reviewed? yes Onset: Abrupt Duration: day(s):, constant, continues in ED Timing: recent history Injury Environment: home No Modifying Factors: none HPI: 27-year-old male comes into the emergency room for medication refill. History of bipolar. Patient reports he ran out of his 600 mg and requesting a refill. Denies any other associated symptoms. Denies any pain. (BAKARI ANGULO) Past History Travel History Traveled to [place] past 21 day No Medical History Any Pertinent Medical History? see below for history Neurological: NONE EENT: NONE Cardiovascular: NONE Respiratory: NONE Gastrointestinal: NONE Hepatic: NONE Renal: NONE Musculoskeletal: NONE Psychiatric: bipolar disease, ADHD Endocrine: NONE Blood Disorders: NONE Cancer(s): NONE CLINICAL REIMBURSEMENT SPECIALIST/Reproductive: NONE History of MRSA: No History of VRE: No History of CDIFF: No Surgical History Surgical History: non-contributory, N Psychosocial History Who do you live with Patient/Self What is your primary language Vietnamese Tobacco Use: Current Daily Use Daily Tobacco Use Amount/Type: => 5 Cigarettes daily Family History Hx Contributory? No (BAKARI ANGULO) Review of Systems Review of Systems Constitutional: Reports: no symptoms. EENTM: Reports: no symptoms. Respiratory: Reports: no symptoms. Cardiovascular: Reports: no symptoms. GI: Reports: no symptoms. Genitourinary: Reports: no symptoms. Musculoskeletal: Reports: no symptoms. Skin: Reports: no symptoms. Neurological/Psychological: Reports: no symptoms. Hematologic/Endocrine: Reports: no symptoms. Immunologic/Allergic: Reports: no symptoms. All Other Systems: Reviewed and Negative (BAKARI ANGULO) Physical Exam Physical Exam General Appearance: well developed/nourished, alert Head: atraumatic Eyes: Bilateral: normal appearance. Ears, Nose, Throat: normal ENT inspection Neck: normal inspection Respiratory: no respiratory distress Back: normal range of motion Extremities: normal inspection, no edema Neurologic/Psych: awake, alert, oriented x 3 Skin: intact, normal color Core Measures ACS in differential dx? No CVA/TIA Diagnosis: No Severe Sepsis Present: No Septic Shock Present: No (BAKARI ANGULO) Progress Differential Diagnoses I considered the following diagnoses in my evaluation of the patient: Bipolar, anxiety, depression, Drug-seeking, Plan of Care: 04/02/2017 3:53:49 PM Follow-up with primary care doctor. Return if any concerns worsening symptoms. Initial ED EKG: none (BAKARI ANGULO) Departure Departure Disposition: HOME OR SELF CARE Condition: Stable Clinical Impression Primary Impression: Medication refill Referrals: JAYDE JANSEN M.D. (PCP/Family) Additional Instructions: Take lithium as prescribed. Follow-up with your primary care doctor. Return if any other concerns. Please go over all results of today's visit with your primary care doctor. Contact your primary care doctor to let them know you were here in the emergency room. There may be nonspecific findings which may not be related to your visit today here in the emergency room but may require further evaluation and chronic monitoring by your primary care doctor. If you had a laceration today the chance of foreign body always remains. You should follow-up with your primary care doctor for recheck in 3-5 days for a wound check. If you had an x-ray done there is a chance that a fracture could have been missed on initial read and you should follow-up with your primary care doctor for repeat x-rays if symptoms persist. If your blood pressure was elevated here in the emergency room please have rechecked by her primary care doctor within the next 48 hours by your primary care doctor. If you were prescribed a narcotic here in the emergency room or any type of controlled substances you're not allowed to drive while taking this medication or operate any type of heavy machinery. Narcotics can make you feel lightheaded dizziness nausea and can cause constipation. You may need to supervisor picking crew a stool softener. Thank you for choosing emergency room. Please return to the emergency room immediately if you have any other concerns worsening of symptoms. Departure Forms: Customer Survey General Discharge Information Prescriptions: Current Visit Scripts [place] Carbonate 1 CAP PO QPM #7 CAP (BAKARI ANGULO) PA/CLINICAL PHARMACIST Co-Sign Statement Statement: ED Attending supervision documentation- [] I saw and evaluated the patient. I have also reviewed all the pertinent lab results and diagnostic results. I agree with the findings and the plan of care as documented in the PA's/CLINICAL PHARMACIST's documentation. [X] I have reviewed the ED Record and agree with the PA's/CLINICAL PHARMACIST's documentation. [] Additions or exceptions (if any) to the PAs/CLINICAL PHARMACIST's note and plan are summarized below: [] (SHUBHAM ROMERO,LORA De Oliveira) Critical Care Note Critical Care Note Critical Care Time: non-applicable (BAKARI ANGULO)
== END 2017-04-02 15:55 ==
LOC: ERH 15:21
DX: Z76.0 Encounter for issue of repeat prescription (principal)
CPT/HCPCS: 99281

== ENCOUNTER 2017-05-03 17:13 | Emergency (ER) | payer OTHER, MEDICARE ==
[~2017-05-03] VITALS: Ht 180.3 cm; Wt 72.6 kg
[~2017-05-03 17:13] MED LIST changes: +LITHIUM CARBON600 M1 PO
[2017-05-03] MEDS ORDERED: LITHIUM CARBON450 M1 PO (18:01)
[2017-05-03] MEDS ORDERED: OLANZAPINE5 M2 PO (18:01)
[2017-05-03] MEDS ORDERED: LITHIUM CARBON600 M1 PO (18:02)
--- NOTE | 2017-05-03 18:13 | ED GENERAL ADULT ---
History of Present Illness General Chief Complaint: General Adult Stated Complaint: MED REFILL Source: patient, old records Exam Limitations: no limitations Vital Signs & Intake/Output Vital Signs & Intake/Output Vital Signs Date Time Temp Pulse Resp B/P B/P Pulse O2 O2 Flow FiO2 Mean Ox Delivery Rate 05/03 1755 99 Room Air 05/03 1715 99.0 110 20 128/86 98 Room Air Allergies Coded Allergies: NO KNOWN ALLERGIES (04/20/16) Reconcile Medications [place] Carbonate ([place] Carbonate ER) 450 MG TABLET.ER 1 TAB PO QAM MENTAL HEALTH (Reported) [place] Carbonate 600 MG CAPSULE 1 CAP PO QPM MENTAL HEALTH (Reported) Olanzapine 5 MG TABLET 1 TAB PO QPM MENTAL HEALTH (Reported) Triage Note: PT TO ED ASKING FOR MED REFILL OF ZYPREXA 5MG, TAKES AT BEDTIME. Triage Nurses Notes Reviewed? yes Onset: Evening Duration: hour(s):, continues in ED Timing: recent history Severity: mild No Modifying Factors: none HPI: Ran out of Zyprexa prior to refill. Denies fever chills nausea vomiting diarrhea abdominal pain chest pain shortness breath headache dysuria rash bleeding suicidal ideation homicidal ideation hallucination. Past History Travel History Traveled to [place] past 21 day No Medical History Any Pertinent Medical History? 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 No Review of Systems Review of Systems Constitutional: Reports: no symptoms. EENTM: Reports: no symptoms. Respiratory: Reports: no symptoms. Cardiovascular: Reports: no symptoms. GI: Reports: no symptoms. Genitourinary: Reports: no symptoms. Musculoskeletal: Reports: no symptoms. Skin: Reports: no symptoms. Neurological/Psychological: Reports: see HPI, anxiety. Hematologic/Endocrine: Reports: no symptoms. Immunologic/Allergic: Reports: no symptoms. All Other Systems: Reviewed and Negative Physical Exam Physical Exam General Appearance: well developed/nourished, alert, awake, anxious, mild distress Head: atraumatic, normal appearance Eyes: Bilateral: normal appearance, PERRL, EOMI. Ears, Nose, Throat: normal pharynx, normal ENT inspection Neck: normal inspection, supple, full range of motion, no midline tenderness Respiratory: normal breath sounds, chest non-tender, no respiratory distress, quiet respiration, lungs clear Cardiovascular: regular rate/rhythm, normal peripheral pulses, norml femoral pulses equa Peripheral Pulses: 4+ carotid (R), 4+ carotid (L) Gastrointestinal: normal bowel sounds, soft, non-tender, no organomegaly Back: normal inspection, normal range of motion, no vertebral tenderness Extremities: normal inspection, normal capillary refill, normal range of motion, no edema Neurologic/Psych: no motor/sensory deficits, awake, alert, oriented x 3, computer forensics investigator II- XII nml as tested Reflexes: 2+: bicep (R), bicep (L). Skin: intact, normal color, warm/dry Lymphatic: no anterior cervical margaret Core Measures ACS in differential dx? No CVA/TIA Diagnosis: No Severe Sepsis Present: No Septic Shock Present: No Progress Differential Diagnoses I considered the following diagnoses in my evaluation of the patient: Medication refill bipolar disorder Plan of Care: Current Medications Sig/Horacio Start time Last Medication Dose Stop Time Status Admin Olanzapine 5 MG ONCE ONE 05/03 1815 UNVr 05/03 (Zyprexa) 05/03 Initial ED EKG: none Departure Departure Time of Disposition: 1811 Disposition: HOME OR SELF CARE Condition: Stable Clinical Impression Primary Impression: Bipolar disorder Qualifiers: Active/Remission status: remission status unspecified Qualified Code: F31.9 - Bipolar disorder, unspecified Referrals: JAYDE JANSEN M.D. (PCP/Family) Departure Forms: Customer Survey General Discharge Information Critical Care Note Critical Care Note Critical Care Time: non-applicable
[2017-05-03 18:18] VITALS: BP 124/74
== END 2017-05-03 18:18 ==
LOC: ERH 17:13
DX: F31.9 Bipolar disorder, unspecified (principal)
CPT/HCPCS: 99281

== ENCOUNTER 2017-05-18 10:01 | Emergency (ER) | payer OTHER, MEDICARE ==
[~2017-05-18] VITALS: Ht 180.3 cm; Wt 72.6 kg
[~2017-05-18 10:01] MED LIST changes: +LITHIUM CARBON450 M1 PO; +ZYPREXA5 M1 PO
[2017-05-18 10:05] VITALS: BP 131/76
--- NOTE | 2017-05-18 11:17 | ED GENERAL ADULT ---
History of Present Illness General Chief Complaint: General Adult Stated Complaint: MED REFILL Source: patient, old records Exam Limitations: no limitations Vital Signs & Intake/Output Vital Signs & Intake/Output Vital Signs Date Time Temp Pulse Resp B/P B/P Pulse O2 O2 Flow FiO2 Mean Ox Delivery Rate 05/18 1005 97.8 82 16 131/76 98 Room Air Allergies Coded Allergies: NO KNOWN ALLERGIES (04/20/16) Reconcile Medications [place] Carbonate ([place] Carbonate ER) 450 MG TABLET.ER 1 TAB PO QAM MENTAL HEALTH (Reported) [place] Carbonate 600 MG CAPSULE 1 CAP PO QPM MENTAL HEALTH (Reported) Olanzapine 5 MG TABLET 1 TAB PO QPM MENTAL HEALTH (Reported) Triage Note: PT HERE TO GET HIS 450 MG PO LITHIUM DOSE . STATES THAT HE WILL BE ABLE TO FILL HIS SCRIPT THIS AFTERNOON Triage Nurses Notes Reviewed? yes Onset: Abrupt Duration: day(s): (1), constant Timing: recent history Injury Environment: home Severity: mild Severity Numbers: 1 No Modifying Factors: none Associated Symptoms: denies HPI: 27-year-old male presents for a dose of his lithium. He states he will be able to get his prescription filled later on this afternoon he takes lithium twice a day. He is declining wishing to speak with crisis the patient is been seen numerous times in the past for similar symptoms. He offers no other complaints at this time (SHARON WILLIAMSON) Past History Travel History Traveled to [place] past 21 day No Medical History Any Pertinent Medical History? 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 No (SHARON WILLIAMSON) Review of Systems Review of Systems Constitutional: Reports: see HPI. Comments Review of systems: See HPI, All other systems negative. Constitutional, no chills no fever, no malaise HEENT: no sore throat no congestion, Cardiovascular: No chest pain , no palpitation Skin: no rashes, no change in skin Respiratory: No dyspnea no cough GI: No nausea no vomiting, Muscle skeletal: No joint pain, no back pain, no neck pain, Neurologic: no headache Psych: No stress Heme/endocrine: No bruising Immunology: No lymphadenopathy (SHARON WILLIAMSON) Physical Exam Physical Exam General Appearance: well developed/nourished, no apparent distress, alert Comments: Well-developed well-nourished patient in no apparent distress. HEENT: Atraumatic, extraocular motion intact Neck: Supple, FROM Back: FROM Cardiovascular: Regular rate and rhythms no murmurs Respiratory: No respiratory distress. Patient speaking in full complete sentences. Breath sounds clear to auscultation bilaterally: NO W/R/R Extremities: full range of motion Neuro: awake, alert, and oriented to person, place and time. There were no obvious focal neurologic abnormalities. Skin: Warm & dry;No appreciable rash on exposed skin Psych: Mood affect normal, normal memory normal judgment. Core Measures ACS in differential dx? No CVA/TIA Diagnosis: No Severe Sepsis Present: No Septic Shock Present: No (SHARON WILLIAMSON) Progress Differential Diagnoses I considered the following diagnoses in my evaluation of the patient: Bipolar medication refill Plan of Care: Current Medications Sig/Horacio Start time Last Medication Dose Stop Time Status Admin [place] Carbonate 450 MG ONCE ONE 05/18 1130 CAN 05/18 1131 Patient is declining wishing to speak with crisis. He states he will get his prescriptions filled this afternoon (SHARON WILLIAMSON) Initial ED EKG: none (SHARON WILLIAMSON) Departure Departure Time of Disposition: 111 Disposition: HOME OR SELF CARE Condition: Stable Clinical Impression Primary Impression: Bipolar disorder Referrals: JAYDE JANSEN M.D. (PCP/Family) Additional Instructions: Fill your prescriptions Departure Forms: Customer Survey General Discharge Information (SHARON WILLIAMSON) PA/AUTOMOBILE MECHANIC SUPERVISOR Co-Sign Statement Statement: ED Attending supervision documentation- I saw and evaluated the patient. I have also reviewed all the pertinent lab results and diagnostic results. I agree with the findings and the plan of care as documented in the PA's/AUTOMOBILE MECHANIC SUPERVISOR's documentation. x I have reviewed the ED Record and agree with the PA's/AUTOMOBILE MECHANIC SUPERVISOR's documentation. [] Additions or exceptions (if any) to the PAs/AUTOMOBILE MECHANIC SUPERVISOR's note and plan are summarized below: [] (AAMIR ROMERO,ELIO) Critical Care Note Critical Care Note Critical Care Time: non-applicable (CHARAN FARMER,SHARON)
== END 2017-05-18 11:36 ==
LOC: ERH 10:01
DX: F31.9 Bipolar disorder, unspecified (principal)

== ENCOUNTER 2017-05-18 20:53 | Emergency (ER) | payer OTHER, MEDICARE ==
[~2017-05-18] VITALS: Ht 154.9 cm; Wt 72.6 kg
[2017-05-18 20:59] VITALS: BP 118/78
--- NOTE | 2017-05-18 21:19 | ED GENERAL ADULT ---
History of Present Illness General Chief Complaint: General Adult Stated Complaint: MED REFILL Source: patient Exam Limitations: no limitations Vital Signs & Intake/Output Vital Signs & Intake/Output ED Intake and Output 05/19 0000 05/18 1200 Intake Total 0 Output Total Balance 0 Intake, Oral 0 Patient 160 lb Weight Allergies Coded Allergies: NO KNOWN ALLERGIES (04/20/16) Reconcile Medications [place] Carbonate ([place] Carbonate ER) 450 MG TABLET.ER 1 TAB PO QAM MENTAL HEALTH (Reported) [place] Carbonate 600 MG CAPSULE 1 CAP PO QPM MENTAL HEALTH (Reported) Olanzapine 5 MG TABLET 1 TAB PO QPM MENTAL HEALTH (Reported) Triage Note: HERE FOR EVENING DOSES OF MEDS. TAKES LITHIUM 600MG AND ZYPREXA 5MG IN THE EVENING, UNABLE TO FILL UNTIL TUESDAY. WAS ABLE TO FILL MORNING PILLS TODAY. Triage Nurses Notes Reviewed? yes HPI: 27y M w/ bipolar disorder presents the ER for evaluation and dosage of his evening lithium and Zyprexa. The patient states that he will be able to refill his medications starting tomorrow. He had no complaints. Pt denied fever/night sweat/weight change/mood change/insomnia, dietary/appetite change, Cough/SOB/CP/Palpitation/exercise intolerance, Ab pain, bowel movement/ urinary abnormality, or other skin/musculoskeletal/neurological disorders. (SABRINA ROMERO,ALLYSON DAIGLE) Past History Travel History Traveled to [place] past 21 day No Medical History Any Pertinent Medical History? see below for history Neurological: NONE EENT: NONE Cardiovascular: NONE Respiratory: NONE Gastrointestinal: NONE Hepatic: NONE Renal: NONE Musculoskeletal: NONE Psychiatric: bipolar disease, ADHD Endocrine: NONE Blood Disorders: NONE Cancer(s): NONE EVP/Reproductive: NONE History of MRSA: No History of VRE: No History of CDIFF: No Surgical History Surgical History: non-contributory, N Psychosocial History Who do you live with Patient/Self What is your primary language Maori Tobacco Use: Current Daily Use Daily Tobacco Use Amount/Type: => 5 Cigarettes daily ETOH Use: denies use Illicit Drug Use: denies illicit drug use Family History Hx Contributory? No (SABRINA ROMERO,ALLYSON DAIGLE) Review of Systems Review of Systems Constitutional: Reports: see HPI. EENTM: Reports: no symptoms. Respiratory: Reports: no symptoms. Cardiovascular: Reports: no symptoms. GI: Reports: no symptoms. Genitourinary: Reports: no symptoms. Musculoskeletal: Reports: no symptoms. Skin: Reports: no symptoms. Neurological/Psychological: Reports: no symptoms. Hematologic/Endocrine: Reports: no symptoms. (SABRINA ROMERO,ALLYSON DAIGLE) Physical Exam Physical Exam General Appearance: no apparent distress, alert, awake Head: atraumatic, normal appearance Respiratory: normal breath sounds, chest non-tender, no respiratory distress, lungs clear Cardiovascular: regular rate/rhythm, normal peripheral pulses Gastrointestinal: soft, non-tender Extremities: normal inspection Core Measures ACS in differential dx? No CVA/TIA Diagnosis: No Severe Sepsis Present: No Septic Shock Present: No (SABRINA ROMERO,ALLYSON ADIGLE) Progress Differential Diagnoses I considered the following diagnoses in my evaluation of the patient: [Anxiety med refill] Plan of Care: Current Medications Sig/Horacio Start time Last Medication Dose Stop Time Status Admin Olanzapine 5 MG ONCE ONE 05/18 2130 AC (Zyprexa) 05/18 2131 We've prescribed the evening refill for pt Spoken with CRISIS if he needs to be seen. CRISIS team stated no need. (SABRINA ROMERO,ALLYSON DAIGLE) Initial ED EKG: none (SABRINA ROMERO,ALLYSON DAIGLE) Departure Departure Disposition: HOME OR SELF CARE Condition: Stable Clinical Impression Primary Impression: Bipolar disorder, unspecified Qualifiers: Active/Remission status: remission status unspecified Qualified Code: F31.9 - Bipolar disorder, unspecified Referrals: JAYDE JANSEN M.D. (PCP/Family) Additional Instructions: Please be compliant with your medications and follow up with your primary care doctor for current symptoms. Please come back to ER if symptom worsens. Departure Forms: Customer Survey General Discharge Information (SABRINA ROMERO,ALLYSON DAIGLE) Resident Co-Sign Statement Statement: ED Attending supervision documentation- [X] I saw and evaluated the patient. I have also reviewed all the pertinent lab results and diagnostic results. I agree with the findings and the plan of care as documented in the Resident's documentation. [X] I have reviewed the ED Record and agree with the Resident's documentation. [] Additions or exceptions (if any) to the Resident's note and plan are summarized below: [] (CHRISTIE ROMERO,SERGEI) Critical Care Note Critical Care Note Critical Care Time: non-applicable (SABRINA ROMERO,ALLYSON DAIGLE)
== END 2017-05-18 22:19 ==
LOC: ERH 20:53
DX: F31.9 Bipolar disorder, unspecified (principal)

== ENCOUNTER 2017-05-19 20:20 | Emergency (ER) | payer OTHER, MEDICARE ==
[2017-05-19 21:27] VITALS: BP 130/81
--- NOTE | 2017-05-19 21:57 | ED GENERAL ADULT ---
History of Present Illness General Chief Complaint: General Adult Stated Complaint: "I HAVE TO GET A REFILL" Source: patient Exam Limitations: no limitations Vital Signs & Intake/Output Vital Signs & Intake/Output Vital Signs Date Time Temp Pulse Resp B/P B/P Pulse O2 O2 Flow FiO2 Mean Ox Delivery Rate 05/19 2127 97.6 79 20 130/81 98 Allergies Coded Allergies: NO KNOWN ALLERGIES (04/20/16) Reconcile Medications [place] Carbonate ([place] Carbonate ER) 450 MG TABLET.ER 1 TAB PO QAM MENTAL HEALTH (Reported) [place] Carbonate 600 MG CAPSULE 1 CAP PO QPM MENTAL HEALTH (Reported) Olanzapine 5 MG TABLET 1 TAB PO QPM MENTAL HEALTH (Reported) Triage Note: PER PT PT STATES HE BY LAW HAS TO COME TO GET MEDS Triage Nurses Notes Reviewed? yes Onset: Abrupt Duration: gone now Timing: recent history Injury Environment: home Severity: mild Severity Numbers: 1 HPI: Patient is a 27-year-old male with a past medical history of bipolar disorder who presents to emergency room with medication request. Patient states that he currently now receives his morning medications of 450 of lithium through his insurance however his insurance currently is not covering the 600 mg of lithium and Zyprexa 5 mg at night. Patient is requesting these medications for his nighttime protocol. Patient denies any symptoms and is otherwise without complaints. Patient has presented to the emergency room recently for similar request. He does state that within the next week his insurance will cover his nighttime medications refill (SHARON MCDONALD) Past History Travel History Traveled to [place] past 21 day No Medical History Any Pertinent Medical History? 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 No (SHARON MCDONALD) Review of Systems Review of Systems Constitutional: Reports: no symptoms. EENTM: Reports: no symptoms. Respiratory: Reports: no symptoms. Cardiovascular: Reports: no symptoms. GI: Reports: no symptoms. Genitourinary: Reports: no symptoms. Musculoskeletal: Reports: no symptoms. Skin: Reports: no symptoms. Neurological/Psychological: Reports: no symptoms. Hematologic/Endocrine: Reports: no symptoms. Immunologic/Allergic: Reports: no symptoms. All Other Systems: Reviewed and Negative (SHARON MCDONALD) Physical Exam Physical Exam General Appearance: no apparent distress, alert Comments: Well-developed well-nourished no apparent distress. HEENT: Atraumatic, extraocular motion intact Neck: Supple, no lymphadenopathy Back: Nontender Respiratory: No respiratory distress Extremities: No edema, full range of motion Neuro: Alert and oriented x3 Psych: Mood affect normal, normal memory normal judgment. Core Measures ACS in differential dx? No CVA/TIA Diagnosis: No Severe Sepsis Present: No Septic Shock Present: No (SHARON MCDONALD) Progress Differential Diagnoses I considered the following diagnoses in my evaluation of the patient: Bipolar disorder, medication refill, ADHD Plan of Care: Current Medications Sig/Horacio Start time Last Medication Dose Stop Time Status Admin [place] Carbonate 600 MG ONCE ONE 05/19 2200 UNVr 05/19 2201 Olanzapine 5 MG ONCE ONE 05/19 2200 UNVr (Zyprexa) 05/19 2201 he currently has unremarkable physical exam findings and is asymptomatic At this time shows no exacerbation of his past medical history Patient was strongly advised to follow-up with his insurance for medication coverage upon discharge patient looks well no apparent distress and will comply with discharge instructions and had no questions (SHARON MCDONALD) Initial ED EKG: none (SHARON MCDONALD) Departure Departure Disposition: HOME OR SELF CARE Condition: Stable Clinical Impression Primary Impression: Medication refill Secondary Impressions: Bipolar disorder Referrals: JAYDE JANSEN M.D. (PCP/Family) Additional Instructions: Please be compliant with your medications and follow up with your primary care doctor for current symptoms. return to emergency room if symptoms worsen or if she develops any new concerning symptom Departure Forms: Customer Survey General Discharge Information (SHARON MCDONALD) PA/OPTIC FIBRE DRAWER Co-Sign Statement Statement: ED Attending supervision documentation- I saw and evaluated the patient. I have also reviewed all the pertinent lab results and diagnostic results. I agree with the findings and the plan of care as documented in the PA's/OPTIC FIBRE DRAWER's documentation. x I have reviewed the ED Record and agree with the PA's/OPTIC FIBRE DRAWER's documentation. [] Additions or exceptions (if any) to the PAs/OPTIC FIBRE DRAWER's note and plan are summarized below: [] (AAMIR ROMERO,ELIO) Critical Care Note Critical Care Note Critical Care Time: non-applicable (SHARON MCDONALD)
== END 2017-05-19 22:16 ==
LOC: ERH 20:20
DX: F31.9 Bipolar disorder, unspecified (principal)

== ENCOUNTER 2017-05-20 08:20 | Emergency (ER) | payer OTHER, MEDICARE ==
[~2017-05-20] VITALS: Ht 180.3 cm; Wt 72.6 kg
[2017-05-20 08:25] VITALS: BP 131/69
--- NOTE | 2017-05-20 08:27 | ED GENERAL ADULT ---
History of Present Illness General Chief Complaint: General Adult Stated Complaint: REQUESTING MED REFILL Source: patient, old records Exam Limitations: no limitations Vital Signs & Intake/Output Vital Signs & Intake/Output Vital Signs Date Time Temp Pulse Resp B/P B/P Pulse O2 O2 Flow FiO2 Mean Ox Delivery Rate 05/20 0825 96.9 87 20 131/69 98 Room Air Room Air Allergies Coded Allergies: NO KNOWN ALLERGIES (04/20/16) Reconcile Medications [place] Carbonate ([place] Carbonate ER) 450 MG TABLET.ER 1 TAB PO QAM MENTAL HEALTH (Reported) [place] Carbonate 600 MG CAPSULE 1 CAP PO QPM MENTAL HEALTH (Reported) Olanzapine 5 MG TABLET 1 TAB PO QPM MENTAL HEALTH (Reported) Triage Note: PT TO ED FOR MED, LITHIUM 450MG. Triage Nurses Notes Reviewed? yes Timing: recent history Injury Environment: home Severity: mild No Modifying Factors: none HPI: This is a 27-year-old male with history of bipolar disorder presents to the ER for his 20 visit in April requesting his lithium dose. Patient initially stated last week that his prescription was to be refilled on the . Now he states that he will be getting until next week. Case management previously wasn't able to give him indigent medications because they do not dispense psychiatric medications. His story about how he lost his medications is continuing to change. Past History Travel History Traveled to [place] past 21 day No Medical History Any Pertinent Medical History? 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 No Review of Systems Review of Systems Constitutional: Denies: chills, fever. EENTM: Reports: no symptoms. Respiratory: Denies: short of breath. Cardiovascular: Denies: chest pain. GI: Reports: no symptoms. Genitourinary: Reports: no symptoms. Musculoskeletal: Reports: no symptoms. Skin: Reports: no symptoms. Neurological/Psychological: Denies: anxiety, confusion, depressed. Hematologic/Endocrine: Denies: bleeding. Immunologic/Allergic: Reports: no symptoms. All Other Systems: Reviewed and Negative Physical Exam Physical Exam General Appearance: alert, anxious, comfortable, cachetic, mild distress, thin Head: atraumatic, normal appearance Eyes: Bilateral: PERRL. Ears, Nose, Throat: normal pharynx, hearing grossly normal Neck: normal inspection, supple, full range of motion Respiratory: normal breath sounds, chest non-tender, no respiratory distress Cardiovascular: regular rate/rhythm Gastrointestinal: soft, non-tender Neurologic/Psych: no motor/sensory deficits, awake, alert, oriented x 3 Skin: intact, normal color, warm/dry Core Measures ACS in differential dx? No CVA/TIA Diagnosis: No Severe Sepsis Present: No Septic Shock Present: No Progress Differential Diagnoses I considered the following diagnoses in my evaluation of the patient: [ medication non compliance, insurance issues] Plan of Care: Corinne from case management involved to prevent further ER visits for medication refill. We will investigate with [facility] pharmacy the status of his current medications. patient requesting to be discharge. he states he will pay a copay to get the dose of medication from [facility] today. case management looking into obtaining indigent med RX if he presents to the ED again for the same complaint. Initial ED EKG: none Departure Departure Time of Disposition: 853 Disposition: HOME OR SELF CARE Condition: Stable Clinical Impression Primary Impression: Bipolar disorder Referrals: JAYDE JANSEN M.D. (PCP/Family) Additional Instructions: FOLLOW UP WITH [facility] Departure Forms: Customer Survey General Discharge Information Critical Care Note Critical Care Note Critical Care Time: non-applicable
[2017-05-21] MEDS ORDERED: ZYPREXA5 M1 PO (12:16)
[2017-05-21] MEDS ORDERED: LITHIUM CARBON450 M1 PO (12:16)
[2017-05-21] MEDS ORDERED: LITHIUM CARBON600 M1 PO (12:16)
== END 2017-05-20 09:00 ==
LOC: ERH 08:20
DX: F31.9 Bipolar disorder, unspecified (principal)

== ENCOUNTER 2017-05-20 21:12 | Emergency (ER) | payer OTHER, MEDICARE ==
[~2017-05-20] VITALS: Ht 180.3 cm; Wt 72.6 kg
[2017-05-20 21:30] VITALS: BP 150/96
--- NOTE | 2017-05-20 21:41 | ED GENERAL ADULT ---
History of Present Illness General Chief Complaint: General Adult Stated Complaint: MED REQUEST Source: patient, old records Exam Limitations: no limitations Vital Signs & Intake/Output Vital Signs & Intake/Output Vital Signs Date Time Temp Pulse Resp B/P B/P Pulse O2 O2 Flow FiO2 Mean Ox Delivery Rate 05/20 2130 97.1 80 18 150/96 98 Room Air Allergies Coded Allergies: NO KNOWN ALLERGIES (04/20/16) Reconcile Medications [place] Carbonate ([place] Carbonate ER) 450 MG TABLET.ER 1 TAB PO QAM MENTAL HEALTH (Reported) [place] Carbonate 600 MG CAPSULE 1 CAP PO QPM MENTAL HEALTH (Reported) Olanzapine 5 MG TABLET 1 TAB PO QPM MENTAL HEALTH (Reported) Triage Note: PT HERE FOR A DOSE OF LITHIUM WAS SEEN HERE THIS AM AND CASE MANAGEMENT SPOKE WITH PT. PT WENT TO [facility] TO [facility] ONE DOSE OF LITHIUM. Triage Nurses Notes Reviewed? yes HPI: Patient presents requesting for his evening meds. Patient is unable to get his medications until Tuesday. Patient has bipolar. Patient denies any suicidal or homicidal ideations. Patient has no other complaints. Past History Travel History Traveled to [place] past 21 day No Medical History Any Pertinent Medical History? 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 No Review of Systems Review of Systems Constitutional: Reports: no symptoms. Respiratory: Reports: no symptoms. Cardiovascular: Reports: no symptoms. Musculoskeletal: Reports: no symptoms. Neurological/Psychological: Reports: no symptoms. Physical Exam Physical Exam General Appearance: well developed/nourished, no apparent distress, alert, awake Eyes: Bilateral: PERRL, EOMI. Respiratory: normal breath sounds, chest non-tender, no respiratory distress, lungs clear Cardiovascular: regular rate/rhythm, normal peripheral pulses Neurologic/Psych: no motor/sensory deficits, awake, alert, oriented x 3, normal gait, normal mood/affect Core Measures ACS in differential dx? No CVA/TIA Diagnosis: No Severe Sepsis Present: No Septic Shock Present: No Progress Differential Diagnoses I considered the following diagnoses in my evaluation of the patient: [ MEDICATION ADMINISTRATION] Plan of Care: Current Medications Sig/Horacio Start time Last Medication Dose Stop Time Status Admin [place] Carbonate 600 MG ONCE ONE 05/20 2145 UNVr ([place] Carbonate) 05/20 2146 Olanzapine 5 MG ONCE ONE 05/20 2145 UNVr (Zyprexa) 05/20 2146 Initial ED EKG: none Departure Departure Disposition: HOME OR SELF CARE Condition: Stable Clinical Impression Primary Impression: Medication administered Referrals: JAYDE JANSEN M.D. (PCP/Family) Additional Instructions: RETURN FOR NEXT DOSE Departure Forms: Customer Survey General Discharge Information Critical Care Note Critical Care Note Critical Care Time: non-applicable
[2017-05-21] MEDS ORDERED: LITHIUM CARBON450 M1 PO (12:16)
[2017-05-21] MEDS ORDERED: LITHIUM CARBON600 M1 PO (12:16)
[2017-05-21] MEDS ORDERED: ZYPREXA5 M1 PO (12:16)
== END 2017-05-20 21:56 ==
LOC: ERH 21:12
DX: Z76.89 Persons encountering health services in other specified circumstances (principal)

== ENCOUNTER 2017-05-21 10:35 | Emergency (ER) | payer OTHER, MEDICARE ==
[~2017-05-21] VITALS: Ht 180.3 cm; Wt 72.6 kg
--- NOTE | 2017-05-21 11:27 | ED GENERAL ADULT ---
History of Present Illness General Chief Complaint: General Adult Stated Complaint: MED REFILL Source: patient Exam Limitations: no limitations Vital Signs & Intake/Output Vital Signs & Intake/Output Vital Signs Date Time Temp Pulse Resp B/P B/P Pulse O2 O2 Flow FiO2 Mean Ox Delivery Rate 05/21 1231 98.0 69 18 110/74 100 Room Air 05/21 1105 98.4 75 20 119/77 99 Room Air Allergies Coded Allergies: NO KNOWN ALLERGIES (04/20/16) Reconcile Medications Clarinda Carbonate (Clarinda Carbonate ER) 450 MG TABLET.ER 1 TAB PO QAM MENTAL HEALTH (Reported) [place] Carbonate 600 MG CAPSULE 1 CAP PO QPM MENTAL HEALTH (Reported) [place] Carbonate 600 MG CAPSULE 1 CAP PO QPM BIPOLAR [place] Carbonate (Clarinda Carbonate ER) 450 MG TABLET.ER 1 TAB PO QAM BIPOLAR Olanzapine 5 MG TABLET 1 TAB PO QPM MENTAL HEALTH (Reported) Olanzapine (Zyprexa) 5 MG TABLET 1 TAB PO QPM BIPOLAR,SLEEP Triage Note: HERE FOR REFILL OF MEDICATION (LITHIUM 450 MG) , STATES HE CANT AN RX FOR A FEW DAYS, STATES HIS INSURANCE IS MIXED UP. Triage Nurses Notes Reviewed? yes Onset: Abrupt Duration: day(s): Timing: recent history No Modifying Factors: none HPI: 27-year-old male comes into emergency room for further evaluation of requesting a dose of his lithium. Patient is due to have his lithium and Zyprexa filled on Tuesday. He has been coming in here for medication dosing until then. He cannot afford to get the prescription refilled until his insurance kicks in. Patient has been seen here multiple times. medical affairs manager has been involved. No SI HI. (BAKARI ANGULO) Past History Travel History Traveled to [place] past 21 day No Medical History Any Pertinent Medical History? 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 No (BAKARI ANGULO) Review of Systems Review of Systems Constitutional: Reports: no symptoms. EENTM: Reports: no symptoms. Respiratory: Reports: no symptoms. Cardiovascular: Reports: no symptoms. GI: Reports: no symptoms. Genitourinary: Reports: no symptoms. Musculoskeletal: Reports: no symptoms. Skin: Reports: no symptoms. Neurological/Psychological: Reports: no symptoms. Hematologic/Endocrine: Reports: no symptoms. Immunologic/Allergic: Reports: no symptoms. All Other Systems: Reviewed and Negative (BAKARI ANGULO) Physical Exam Physical Exam General Appearance: well developed/nourished, no apparent distress, alert, awake Head: atraumatic Eyes: Bilateral: normal appearance. Ears, Nose, Throat: normal ENT inspection, hearing grossly normal Neck: normal inspection Respiratory: normal breath sounds Back: normal inspection Extremities: normal inspection Neurologic/Psych: awake, alert, oriented x 3 Skin: intact, normal color Core Measures ACS in differential dx? No CVA/TIA Diagnosis: No Severe Sepsis Present: No Septic Shock Present: No (BAKARI ANGULO) Progress Differential Diagnoses I considered the following diagnoses in my evaluation of the patient: bipolar, ADHD, depression, anxiety, Plan of Care: 05/21/2017 1:55:53 PM Follow-up with psychiatrist. Return if any concerns worsening symptoms. Case management got involved and was able to get the prescription a 5 day supply the medications for free. Initial ED EKG: none (BAKARI ANGULO) Departure Departure Disposition: HOME OR SELF CARE Condition: Stable Clinical Impression Primary Impression: Bipolar 1 disorder Referrals: JAYDE JANSEN M.D. (PCP/Family) Additional Instructions: Take lithium and Zyprexa as prescribed. Follow-up with primary care doctor. Return if any concerns worsening symptoms. Please go over all results of today's visit with your primary care doctor. Contact your primary care doctor to let them know you were here in the emergency room. There may be nonspecific findings which may not be related to your visit today here in the emergency room but may require further evaluation and chronic monitoring by your primary care doctor. If you had a laceration today the chance of foreign body always remains. You should follow-up with your primary care doctor for recheck in 3-5 days for a wound check. If you had an x-ray done there is a chance that a fracture could have been missed on initial read and you should follow-up with your primary care doctor for repeat x-rays if symptoms persist. If your blood pressure was elevated here in the emergency room please have rechecked by her primary care doctor within the next 48 hours by your primary care doctor. If you were prescribed a narcotic here in the emergency room or any type of controlled substances you're not allowed to drive while taking this medication or operate any type of heavy machinery. Narcotics can make you feel lightheaded dizziness nausea and can cause constipation. You may need to picker tender a stool softener. Thank you for choosing [facility] emergency room. Please return to the emergency room immediately if you have any other concerns worsening of symptoms. Departure Forms: Customer Survey General Discharge Information Prescriptions: Current Visit Scripts Clarinda Carbonate 1 CAP PO QPM #5 CAP [place] Carbonate (Clarinda Carbonate ER) 1 TAB PO QAM #5 TAB Olanzapine (Zyprexa) 1 TAB PO QPM #5 TAB (BAKARI ANGULO) PA/ASSESSMENT CLINICIAN Co-Sign Statement Statement: ED Attending supervision documentation- [] I saw and evaluated the patient. I have also reviewed all the pertinent lab results and diagnostic results. I agree with the findings and the plan of care as documented in the PA's/ASSESSMENT CLINICIAN's documentation. [X] I have reviewed the ED Record and agree with the PA's/ASSESSMENT CLINICIAN's documentation. [] Additions or exceptions (if any) to the PAs/ASSESSMENT CLINICIAN's note and plan are summarized below: [] (CHRISTIE ROMERO,SERGEI) Critical Care Note Critical Care Note Critical Care Time: non-applicable (BAKARI ANGULO)
[2017-05-21] MEDS ORDERED: LITHIUM CARBON450 M1 PO (12:16)
[2017-05-21] MEDS ORDERED: ZYPREXA5 M1 PO (12:16)
[2017-05-21] MEDS ORDERED: LITHIUM CARBON600 M1 PO (12:16)
[2017-05-21 12:31] VITALS: BP 110/74
--- NOTE | 2017-05-21 12:45 | NUR ---
Case Mgmnt TSF: Patient was provided with indigent meds. I spoke with Della, in patient pharmacist and Kamlesh retail pharmacist regarding meds. Patient was given a card for Edwige to follow up with her regarding his [employer] application. Patient verbalized agreement to follow up on this. Case mgmnt complete.
--- NOTE | 2017-05-23 12:12 | Event Note ---
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 Hanh reports that the patient has missed many appointments in the past; his next scheduled visit with Dr. Fabrizio Camargo is on 06/06/17. Hanh notes that the last lithium level known to us was 0.5 in Feb, 2017, and will address that, as well. She will reach out to the patient today.
== END 2017-05-21 12:31 ==
LOC: ERH 10:35
DX: F31.9 Bipolar disorder, unspecified (principal)
CPT/HCPCS: 99281

== ENCOUNTER 2017-10-24 17:38 | Emergency (ER) | payer OTHER, MEDICARE ==
[~2017-10-24] VITALS: Ht 180.3 cm; Wt 72.6 kg
[~2017-10-24 17:38] MED LIST changes: +AUGMENTIN 875-1 EACH PO; +IBUPROFEN800 M1 PO; +PERCOCET 5-3251 EACH PO
[2017-10-24 17:49] VITALS: BP 140/93
--- NOTE | 2017-10-24 18:01 | ED GENERAL ADULT ---
History of Present Illness General Chief Complaint: General Adult Stated Complaint: MEDICATION REFILL Source: patient Exam Limitations: no limitations Vital Signs & Intake/Output Vital Signs & Intake/Output Vital Signs Date Time Temp Pulse Resp B/P B/P Pulse O2 O2 Flow FiO2 Mean Ox Delivery Rate 10/24 1749 97.1 74 18 140/93 98 Room Air Allergies Coded Allergies: No Known Allergies (10/14/17) Reconcile Medications Amoxicillin/Potassium Clav (Augmentin 875-125 Tablet) 875 MG-125 MG TABLET 1 TAB PO BID dental pain Amoxicillin/Potassium Clav (Augmentin 875-125 Tablet) 875 MG-125 MG TABLET 1 TAB PO BID DENTAL INFECTION Ibuprofen 800 MG TABLET 1 TAB PO TID PRN pain Ibuprofen 800 MG TABLET 1 TAB PO TID PRN PAIN [place] Carbonate ([place] Carbonate ER) 450 MG TABLET.ER 1 TAB PO QAM MENTAL HEALTH (Reported) [place] Carbonate 600 MG CAPSULE 1 CAP PO QPM MENTAL HEALTH (Reported) [place] Carbonate 600 MG CAPSULE 1 CAP PO QPM BIPOLAR [place] Carbon[place] ([place] Carbonate ER) 450 MG TABLET.ER 1 TAB PO QAM BIPOLAR [place] Carbon[place] ([place] Carbonate ER) 450 MG TABLET.ER 1 TAB PO QAM bipolar [place] Carbonate 600 MG CAPSULE 1 CAP PO QPM bipolar [place] Carbonate 600 MG CAPSULE 1 CAP PO BID bipolar Olanzapine 5 MG TABLET 1 TAB PO QPM MENTAL HEALTH (Reported) Olanzapine (Zyprexa) 5 MG TABLET 1 TAB PO QPM BIPOLAR,SLEEP Olanzapine (Zyprexa) 5 MG TABLET 1 TAB PO QPM bipolar Oxycodone HCl/Acetaminophen (Percocet 5-325 MG Tablet) 5 MG-325 MG TABLET 1 TAB PO BID PRN pain Oxycodone HCl/Acetaminophen (Percocet 5-325 MG Tablet) 5 MG-325 MG TABLET 1 TAB PO BID BREAKTHROUGH PAIN Oxycodone HCl/Acetaminophen (Percocet 5-325 MG Tablet) 5 MG-325 MG TABLET 1 TAB PO 4XDP PRN PAIN FOUR...[id number] Triage Note: PT STATES THAT HE NEEDS HIS LITHIUM AND ZYPREXA, RAN OUT AND HAS NO MONEY Triage Nurses Notes Reviewed? yes Onset: Abrupt Duration: day(s): Injury Environment: home No Modifying Factors: none HPI: 27-year-old male comes into the emergency room requesting his dose of lithium and Zyprexa. Patient reports that he did not have the money to fill the prescriptions. He denies any pain. Denies any SI HI. Denies any other associated symptoms. (Torsten Frank) Past History Travel History Traveled to [place] past 21 day No Medical History Any Pertinent Medical History? 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 No (Torsten Frank) Review of Systems Review of Systems Constitutional: Reports: no symptoms. EENTM: Reports: no symptoms. Respiratory: Reports: no symptoms. Cardiovascular: Reports: no symptoms. GI: Reports: no symptoms. Genitourinary: Reports: no symptoms. Musculoskeletal: Reports: no symptoms. Skin: Reports: no symptoms. Neurological/Psychological: Reports: see HPI. Hematologic/Endocrine: Reports: no symptoms. Immunologic/Allergic: Reports: no symptoms. All Other Systems: Reviewed and Negative (Torsten Frank) Physical Exam Physical Exam General Appearance: well developed/nourished, alert, awake Head: atraumatic Eyes: Bilateral: normal appearance, EOMI. Ears, Nose, Throat: normal ENT inspection, hearing grossly normal Neck: normal inspection Respiratory: no respiratory distress Back: normal range of motion Extremities: normal inspection Neurologic/Psych: awake, alert, oriented x 3 Skin: intact, normal color Core Measures ACS in differential dx? No CVA/TIA Diagnosis: No Sepsis Present: No Sepsis Focused Exam Completed? No (Torsten Frank) Progress Differential Diagnoses I considered the following diagnoses in my evaluation of the patient: Anxiety, depression, bipolar, PTSD, Plan of Care: Current Medications Sig/Horacio Start time Last Medication Dose Stop Time Status Admin [place] Carbonate 600 MG ONCE ONE 10/24 1800 UNVr ([place] Carbonate) 10/24 180 Olanzapine 5 MG ONCE ONE 10/24 1800 UNVr (Zyprexa) 10/24 1801 Initial ED EKG: none (Torsten Frank) Departure Departure Disposition: HOME OR SELF CARE Condition: Stable Clinical Impression Primary Impression: Medication administered Referrals: Rahel Wong MD (PCP/Family) Additional Instructions: Follow-up with your psychiatrist and PCP. Please go over all results of today's visit with your primary care doctor. Contact your primary care doctor to let them know you were here in the emergency room. There may be nonspecific findings which may not be related to your visit today here in the emergency room but may require further evaluation and chronic monitoring by your primary care doctor. If you had a laceration today the chance of foreign body always remains. You should follow-up with your primary care doctor for recheck in 3-5 days for a wound check. If you had an x-ray done there is a chance that a fracture could have been missed on initial read and you should follow-up with your primary care doctor for repeat x-rays if symptoms persist. If your blood pressure was elevated here in the emergency room please have rechecked by [facility] primary care doctor within the next 48. If you were prescribed a narcotic here in the emergency room or any type of controlled substances you're not allowed to drive while taking this medication or operate any type of heavy machinery. Narcotics can make you feel lightheaded dizziness nausea and can cause constipation. You may need to slate picker a stool softener. Thank you for choosing [facility] emergency room. Please return to the emergency room immediately if you have any other concerns worsening of symptoms. Departure Forms: Customer Survey General Discharge Information (Torsten Frank) PA/ENGINEERING EXECUTIVE Co-Sign Statement Statement: ED Attending supervision documentation- [] I saw and evaluated the patient. I have also reviewed all the pertinent lab results and diagnostic results. I agree with the findings and the plan of care as documented in the PA's/ENGINEERING EXECUTIVE's documentation. [X] I have reviewed the ED Record and agree with the PA's/ENGINEERING EXECUTIVE's documentation. [] Additions or exceptions (if any) to the PAs/ENGINEERING EXECUTIVE's note and plan are summarized below: [] (Orion ROMERO,Fabrizio De Oliveira) Critical Care Note Critical Care Note Critical Care Time: non-applicable (Torsten Frank)
== END 2017-10-24 18:14 ==
LOC: ERH 17:38
DX: Z76.89 Persons encountering health services in other specified circumstances (principal)

== ENCOUNTER 2017-12-28 10:35 | Emergency (ER) | payer OTHER, MEDICARE ==
[~2017-12-28] VITALS: Ht 180.3 cm; Wt 77.1 kg
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
[2017-12-28 10:44] VITALS: BP 133/98
[2017-12-28] MEDS ORDERED: LITHIUM CARBON450 M1 PO (10:44)
[2017-12-28] MEDS ORDERED: ZYPREXA5 M1 PO (10:44)
[2017-12-28] MEDS ORDERED: LITHIUM CARBON600 M1 PO (10:44)
== END 2017-12-28 10:55 ==
LOC: ERH 10:35
DX: Z76.0 Encounter for issue of repeat prescription (principal)
CPT/HCPCS: 99281

== ENCOUNTER 2018-02-23 07:25 | Emergency (ER) | payer OTHER, MEDICARE ==
[~2018-02-23] VITALS: Ht 180.3 cm; Wt 77.1 kg
[2018-02-23 07:31] VITALS: BP 123/76
--- NOTE | 2018-02-23 07:34 | ED GENERAL ADULT ---
History of Present Illness General Chief Complaint: General Adult Stated Complaint: MED REFILL Source: patient Exam Limitations: no limitations Vital Signs & Intake/Output Vital Signs & Intake/Output Vital Signs Date Time Temp Pulse Resp B/P B/P Pulse O2 O2 Flow FiO2 Mean Ox Delivery Rate 02/23 0731 97.8 95 15 123/76 98 Room Air Room Air Allergies Coded Allergies: No Known Allergies (02/23/18) Reconcile Medications Otterbein Carbonate 600 MG CAPSULE 1 CAP PO QPM BIPOLAR Otterbein Carbonate (Otterbein Carbonate ER) 450 MG TABLET.ER 1 TAB PO QAM BIPOLAR Olanzapine (Zyprexa) 5 MG TABLET 1 TAB PO QPM BIPOLAR Triage Note: PT TO ED FOR REFILL OF LITHIUM AND ZYPREXA. Triage Nurses Notes Reviewed? yes Onset: Abrupt Duration: day(s): Timing: recent history HPI: 02/23/18 10 AM 28-year-old male presents to the emergency department for prescription refill. He denies any complaints. He denies suicidal ideation. He says he has a history of bipolar disorder. He is scheduled to see his therapist today. He says he usually gets a lithium level drawn during his visit. He says he ran out of his lithium and Zyprexa. Past History Travel History Traveled to [place] past 21 day No Medical History Any Pertinent Medical History? 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 No Review of Systems Review of Systems Constitutional: Denies: fever. EENTM: Reports: no symptoms. Respiratory: Reports: no symptoms. Cardiovascular: Reports: no symptoms. GI: Reports: no symptoms. Genitourinary: Reports: no symptoms. Musculoskeletal: Reports: no symptoms. Skin: Reports: no symptoms. Neurological/Psychological: Reports: see HPI. Hematologic/Endocrine: Reports: no symptoms. Immunologic/Allergic: Reports: no symptoms. Physical Exam Physical Exam General Appearance: well developed/nourished, no apparent distress, alert, awake , anxious Head: atraumatic, normal appearance Eyes: Bilateral: normal appearance, PERRL, EOMI. Ears, Nose, Throat: normal pharynx, normal ENT inspection Neck: normal inspection, supple Respiratory: chest non-tender, no respiratory distress Cardiovascular: regular rate/rhythm Peripheral Pulses: 4+ radial (R), 4+ radial (L) Gastrointestinal: soft, non-tender Back: normal range of motion Extremities: normal inspection, normal range of motion Neurologic/Psych: no motor/sensory deficits, awake, alert, oriented x 3, normal gait Skin: intact, normal color, warm/dry Core Measures ACS in differential dx? No CVA/TIA Diagnosis: No Sepsis Present: No Sepsis Focused Exam Completed? No Progress Differential Diagnoses I considered the following diagnoses in my evaluation of the patient: [Bipolar disorder] Plan of Care: The patient's Zyprexa and lithium were renewed for 7 days. He was instructed to follow-up with his therapist today to scheduled. Initial ED EKG: none Departure Departure Disposition: HOME OR SELF CARE Condition: Stable Clinical Impression Primary Impression: Bipolar 1 disorder Referrals: Rahel Wong MD (PCP/Family) Departure Forms: Customer Survey General Discharge Information Prescriptions: Current Visit Scripts Otterbein Carbonate 1 CAP PO QPM #7 CAP Otterbein Carbonate (Otterbein Carbonate ER) 1 TAB PO QAM #7 TAB Olanzapine (Zyprexa) 1 TAB PO QPM #7 TAB Critical Care Note Critical Care Note Critical Care Time: non-applicable
[2018-02-23] MEDS ORDERED: LITHIUM CARBON450 M1 PO (08:17)
[2018-02-23] MEDS ORDERED: LITHIUM CARBON600 M1 PO (08:17)
[2018-02-23] MEDS ORDERED: ZYPREXA5 M1 PO (08:17)
[2018-05-26] MEDS ORDERED: LITHIUM CARBON450 M1 PO (07:26)
[2018-05-26] MEDS ORDERED: ZYPREXA5 M1 PO (07:26)
[2018-05-26] MEDS ORDERED: LITHIUM CARBON600 M1 PO (07:26)
[2018-06-10] MEDS ORDERED: LITHIUM CARBON450 M1 PO (12:32)
[2018-06-10] MEDS ORDERED: ZYPREXA5 M1 PO (12:32)
[2018-06-10] MEDS ORDERED: LITHIUM CARBON600 M1 PO ×2 (12:32→12:34)
[2018-06-23] MEDS ORDERED: LITHIUM CARBON450 M1 PO ×2 (03:36→03:44)
[2018-06-23] MEDS ORDERED: ZYPREXA5 M1 PO (03:36)
[2018-06-23] MEDS ORDERED: LITHIUM CARBON600 M1 PO ×2 (03:36→03:44)
[2018-06-23] MEDS ORDERED: OLANZAPINE5 M2 PO (03:44)
== END 2018-02-23 08:40 ==
LOC: ERH 07:25
DX: F31.9 Bipolar disorder, unspecified (principal)
CPT/HCPCS: 99281

== ENCOUNTER 2018-06-08 07:36 | Emergency (ER) | payer OTHER, MEDICARE ==
[2018-06-08 07:48] VITALS: BP 123/81
[2018-06-10] MEDS ORDERED: LITHIUM CARBON450 M1 PO (12:32)
[2018-06-10] MEDS ORDERED: ZYPREXA5 M1 PO (12:32)
[2018-06-10] MEDS ORDERED: LITHIUM CARBON600 M1 PO ×2 (12:32→12:34)
== END 2018-06-08 11:13 | disposition admitted as inpatient to this hospital (09) ==
LOC: ERH 07:36
DX: Z76.0 Encounter for issue of repeat prescription (principal)

== ENCOUNTER 2018-06-09 12:09 | Emergency (ER) | payer OTHER, MEDICARE ==
[2018-06-09 12:23] VITALS: BP 137/77
[2018-06-10] MEDS ORDERED: LITHIUM CARBON600 M1 PO ×2 (12:32→12:34)
[2018-06-10] MEDS ORDERED: LITHIUM CARBON450 M1 PO (12:32)
[2018-06-10] MEDS ORDERED: ZYPREXA5 M1 PO (12:32)
== END 2018-06-09 15:31 | disposition admitted as inpatient to this hospital (09) ==
LOC: ERH 12:09
DX: Z76.0 Encounter for issue of repeat prescription (principal)

== ENCOUNTER 2018-06-14 21:08 | Emergency (ER) | payer OTHER, MEDICARE ==
[2018-06-14 21:14] VITALS: BP 112/78
== END 2018-06-14 21:34 | disposition admitted as inpatient to this hospital (09) ==
LOC: ERH 21:08
DX: Z76.0 Encounter for issue of repeat prescription (principal)

== ENCOUNTER 2018-06-15 20:53 | Emergency (ER) | payer OTHER, MEDICARE ==
--- NOTE | 2018-06-20 11:41 | ED CARE PLAN ---
Plan of Care - Attention this patient requires immediate and constant monitoring based on prior emergency department visits. Please contact security upon arrival.
[2018-06-23] MEDS ORDERED: LITHIUM CARBON600 M1 PO ×2 (03:36→03:44)
[2018-06-23] MEDS ORDERED: ZYPREXA5 M1 PO (03:36)
[2018-06-23] MEDS ORDERED: LITHIUM CARBON450 M1 PO ×2 (03:36→03:44)
[2018-06-23] MEDS ORDERED: OLANZAPINE5 M2 PO (03:44)
== END 2018-06-15 21:31 | disposition admitted as inpatient to this hospital (09) ==
LOC: ERH 20:53
DX: Z76.0 Encounter for issue of repeat prescription (principal)